=== PATIENT | female | born 1990 | race Caucasian/White ===

== ENCOUNTER 2021-04-16 09:58 | Emergency (ER) | payer MEDICAID, SELFPAY ==
--- NOTE | ~2021-04-16 | CT_ITS ---
EXAMINATION: CT ABDOMEN AND PELVIS WITHOUT CONTRAST CLINICAL INFORMATION: Right lower quadrant pain. COMPARISON: Report ultrasound abdomen 04/08/2015, report CT abdomen and pelvis with contrast 08/19/2012 TECHNIQUE: Multidetector volumetric imaging was performed from the superior aspect of the liver through the pubic symphysis. No oral or intravenous contrast. Sagittal and coronal reformatted images were obtained on the technologist's workstation. This CT examination was performed using dose optimization techniques as appropriate, variously including the following: *Automated exposure control *Adjustment of mA and/or kV according to patient size (this includes techniques or standardized protocols for targeted exams where dose is matched to indication/reason for exam; i.e. extremities or head) *Use of iterative reconstruction technique DLP: 348 mGy-cm FINDINGS: LUNG BASES: The visualized lung bases are unremarkable. LIVER, GALLBLADDER, AND BILIARY TREE: The liver is normal in size, shape, and attenuation. No focal hepatic lesion or biliary ductal dilatation is present. The gallbladder is unremarkable with no evidence of radiopaque gallstones, gallbladder wall thickening, or obvious pericholecystic inflammatory changes. PANCREAS: Unremarkable. SPLEEN: Unremarkable. ADRENAL GLANDS: Unremarkable. KIDNEYS AND URETERS: There is mild fullness right collecting system and right ureter. Suspect distal right ureteral calculus just proximal to the ureterovesical junction measuring 3.3 mm. There is no perinephric stranding. Left urinary tract unremarkable. BLADDER: Unremarkable. GASTROINTESTINAL TRACT: There is a large appendicolith in the appendix measuring 6 x 8 mm with 2 smaller adjacent satellite appendicoliths under 4 mm, not previously described. There is normal gas in the appendiceal lumen. The appendix adjacent to the appendicolith measure 5 x 7 mm in caliber. No periappendiceal inflammatory changes. There is no bowel obstruction. Moderate stool is present throughout the colon. There is no inflammatory changes in the bowel. No ascites or fluid collection. No pneumatosis or free air. ABDOMINAL WALL: No significant hernia is appreciated. LYMPH NODES: No lymphadenopathy. VASCULAR: Unremarkable. PELVIC VISCERA: Dominant follicle left ovary 2 cm. No pelvic ascites. OSSEOUS STRUCTURES: Unremarkable. CT/CT abdomen pelvis wo con IMPRESSION: 1. Fullness right renal collecting system and right ureter, suspect related to a 3 mm distal ureteral calculus. No perinephric stranding. Left urinary tract unremarkable. 2. Prominent appendiceal appendicolith, largest 6 x 8 mm. No periappendiceal inflammatory changes. 3. Moderate stool throughout colon. No ascites or fluid collection.
[2021-04-16 10:04] VITALS: BP 124/62; PULSE 84; RESP 24; TEMP 36.6; O2SAT 98; BMI 22.1
--- NOTE | 2021-04-16 14:21 | ED.ABDPAIN ---
HPI - Abdominal Pain General Chief Complaint: Abdominal Pain Stated Complaint: rt side abd pain Time Seen by Provider: 04/16/21 14:20 History of Present Illness HPI narrative: PATIENT IS 30-YEAR-OLD FEMALE PRESENTED WITH HAVING SUDDEN onset of abdominal pain the pain is on right side. Is extremely sharp. Associated with mild nausea. No vomiting. Patient is from home. No history kidney stone. No history of tender side is no history of abdominal surgery in the past. Patient did not miss her menstruation. No coughing no congestion or upper respiratory symptoms. Patient is not immunized. There is no diarrhea. No vomiting. No vaginal discharge. Related Data Previous Rx's Medication Instructions Recorded ibuprofen 400 mg tablet 400 mg PO Q6H PRN #20 tab 04/16/21 ondansetron HCl 4 mg tablet 4 mg PO Q8H PRN #10 tab 04/16/21 (Zofran) oxycodone 5 mg tablet 5 mg PO Q8H PRN #7 tab 04/16/21 tamsulosin 0.4 mg capsule (Flomax) 0.4 mg PO DAILY #7 cap 04/16/21 Allergies Allergy/AdvReac Type Severity Reaction Status Date / Time No Known Allergies Allergy Verified 04/16/21 10:02 Review of Systems Review of Systems Positive right-sided abdominal pain no cough no congestion or upper respiratory symptoms all system reviewed otherwise negative Physical Exam Vital Signs: Vital Signs: Last Vital Signs Temp 97.8 F 04/16/21 10:04 Pulse 84 04/16/21 10:04 Resp 24 H 04/16/21 10:04 BP 124/62 04/16/21 10:04 Pulse Ox 98 04/16/21 10:04 Body Mass Index 22.1 Appearance: Alert. Oriented X3. No acute distress. Eyes: Pupils equal, round and reactive to light. ENT: Pharynx normal. Neck: Normal inspection. Neck supple. No lymph nodes noted. No crepitus CVS: Normal heart rate and rhythm. Pulses normal. Normal S1 and S2 Respiratory: No respiratory distress. Breath sounds normal. No Wheezing. No rales Abdomen: Soft and nontender. No rigidity. No distention. good BS x4 Skin: Skin warm and dry. Normal skin color. Normal skin turgor. Extremities: No lower extremity edema. Neurovascular intact to all extremities. No Lacerations. No Rash Neuro: Oriented X 3. No motor deficit. No sensory deficit. Moving all extermities. No slurred speech MDM - Abdominal Pain MDM Narrative Medical decision making narrative: CT scan of the abdomen showed a 3 mm distal ureteral stone. Patient well-appearing. Creatinine is normal. Urine not infected. Not . Pain is controlled. Will discharge patient home follow up on an outpatient basis with Urology. Currently in stable condition. Medical Records Attestation: I reviewed the patient's medical records. Lab Data Attestation: I reviewed the patient's lab results. Result diagrams: 04/16/21 14:34 04/16/21 14:34 Labs: Lab Results 04/16/21 04/16/21 04/16/21 Range/Units 14:34 14:34 14:34 WBC 9.6 (4.8-10.8) X10*3/uL RBC 4.00 L (4.20-5.50) X10*6/uL Hgb 11.1 L (12.0-16.0) g/dl Hct 35.2 L (37.0-47.0) % MCV 88.0 (80.0-98.0) fL MCH 27.8 (27.0-33.0) pg MCHC 31.5 (31.0-35.0) g/dl RDW 13.5 (11.0-16.0) % Plt Count 335 (160-400) X10*3/uL MPV 9.7 (9.4-12.3) fL Immature Gran % (Auto) 0.3 (0.0-0.4) % Neut % (Auto) 86.4 H (45-73) % Lymph % (Auto) 10.0 L (20-40) % [place] % (Auto) 3.0 (2-11) % Eos % (Auto) 0.1 (0-4) % Baso % (Auto) 0.2 (0-2) % Lymph # (Auto) 1.0 L (1.2-4.9) X10*3/uL [place] # (Auto) 0.3 (0.1-1.2) X10*3/uL Eos # (Auto) 0.0 (0.0-0.4) X10*3/uL Baso # (Auto) 0.0 (0.0-0.2) X10*3/uL Abs Immat Gran (auto) 0.03 (0.00-0.03) X10*3/uL Absolute Neuts (auto) 8.3 (2.0-8.3) x10*3/uL Absolute Nucleated RBC 0.000 (0.0-0.012) X10*3/uL Nucleated RBC % (auto) 0.0 (0.0-0.2) /100WBC Sodium 138 (135-145) mmol/L Potassium 4.3 (3.3-5.1) mmol/L Chloride 107 (96-108) mmol/L Carbon Dioxide 22 (22-29) mmol/L Anion Gap 13 (12-20) BUN 11 (9-16) mg/dL Creatinine 0.84 (0.5-1.4) mg/dL Estim Creat Clear Calc 75.2 Estimated GFR > 60 Random Glucose 89 (60-115) mg/dL Calcium 9.7 (8.4-10.2) mg/dL Total Bilirubin 0.4 (0.0-1.0) mg/dL AST 20 (5-31) U/L ALT 15 (0-31) U/L Alkaline Phosphatase 59 (39-117) U/L Total Protein 7.8 (6.5-8.0) g/dL Albumin 4.6 (3.5-5.0) g/dL Urine Color Urine Appearance Urine pH (5.0-8.0) Ur Specific [place] (1.005-1.025) Urine Protein (NEG-TRACE) MG/DL Urine Glucose (UA) (NEG) MG/DL Urine Ketones (NEG) MG/DL Urine Blood (NEG) Urine Nitrite (NEG) Ur Leukocyte Esterase (NEG) Urine RBC (0) /HPF Urine WBC (0-4) /HPF Ur Squamous Epith Cells /LPF Amorphous Sediment /LPF Urine Bacteria /LPF Urine Test NEGATIVE (NEGATIVE) 04/16/21 Range/Units 14:34 WBC (4.8-10.8) X10*3/uL RBC (4.20-5.50) X10*6/uL Hgb (12.0-16.0) g/dl Hct (37.0-47.0) % MCV (80.0-98.0) fL MCH (27.0-33.0) pg MCHC (31.0-35.0) g/dl RDW (11.0-16.0) % Plt Count (160-400) X10*3/uL MPV (9.4-12.3) fL Immature Gran % (Auto) (0.0-0.4) % Neut % (Auto) (45-73) % Lymph % (Auto) (20-40) % [place] % (Auto) (2-11) % Eos % (Auto) (0-4) % Baso % (Auto) (0-2) % Lymph # (Auto) (1.2-4.9) X10*3/uL [place] # (Auto) (0.1-1.2) X10*3/uL Eos # (Auto) (0.0-0.4) X10*3/uL Baso # (Auto) (0.0-0.2) X10*3/uL Abs Immat Gran (auto) (0.00-0.03) X10*3/uL Absolute Neuts (auto) (2.0-8.3) x10*3/uL Absolute Nucleated RBC (0.0-0.012) X10*3/uL Nucleated RBC % (auto) (0.0-0.2) /100WBC Sodium (135-145) mmol/L Potassium (3.3-5.1) mmol/L Chloride (96-108) mmol/L Carbon Dioxide (22-29) mmol/L Anion Gap (12-20) BUN (9-16) mg/dL Creatinine (0.5-1.4) mg/dL Estim Creat Clear Calc Estimated GFR Random Glucose (60-115) mg/dL Calcium (8.4-10.2) mg/dL Total Bilirubin (0.0-1.0) mg/dL AST (5-31) U/L ALT (0-31) U/L Alkaline Phosphatase (39-117) U/L Total Protein (6.5-8.0) g/dL Albumin (3.5-5.0) g/dL Urine Color YELLOW Urine Appearance CLOUDY Urine pH 8.0 (5.0-8.0) Ur Specific [place] 1.020 (1.005-1.025) Urine Protein TRACE (NEG-TRACE) MG/DL Urine Glucose (UA) NEG (NEG) MG/DL Urine Ketones >=80 (NEG) MG/DL Urine Blood 1+ H (NEG) Urine Nitrite NEG (NEG) Ur Leukocyte Esterase NEG (NEG) Urine RBC 1-4 (0) /HPF Urine WBC 0 (0-4) /HPF Ur Squamous Epith Cells 3+ /LPF Amorphous Sediment 1+ /LPF Urine Bacteria 2+ /LPF Urine Test (NEGATIVE) Discharge Plan Discharge Clinical Impression: Renal colic Patient Disposition: Home, Self-Care Instructions: Renal Colic (ED) Prescriptions: New ondansetron HCl [Zofran] 4 mg tablet 4 mg PO Q8H PRN (Reason: nausea and vomiting) Qty: 10 RF: 0 tamsulosin [Flomax] 0.4 mg capsule 0.4 mg PO DAILY Qty: 7 RF: 0 ibuprofen 400 mg tablet 400 mg PO Q6H PRN (Reason: pain) Qty: 20 RF: 0 oxycodone 5 mg tablet 5 mg PO Q8H PRN (Reason: pain) Qty: 7 RF: 0 Referrals: Joseluis Wong MD [Physician] - 2 days [facility] Past Medical History Attestation statement: The following information was validated with the patient. Medical History Patient denies medical problems Social History Social History Patient Tobacco Use Status: Never used Tobacco Use of substances other than those prescribed or required for medical reasons: No Advance Directives: No Advance Directives Information Provided: Yes Patient : No
[2021-04-16] MEDS: 0.9 % Sodium Chloride 1,000 ML 999 ML IV (14:36)
[2021-04-16] MEDS: Ketorolac Tromethamine 15 MG/ML VIAL 30 MG IVPUSH (14:39)
[2021-04-16 14:42] LABS: MANUAL DIFF FLAG NO
[2021-04-16 14:44] LABS: Basophils Percent Auto 0.2 % (0-2); Eosinophils Percent Auto 0.1 % (0-4); Hematocrit 35.2 % (37.0-47.0); Hemoglobin 11.1 g/dl (12.0-16.0); Imm Gran Abs Auto 0.03 X10*3/uL (0.00-0.03); Imm Gran Pct Auto 0.3 % (0.0-0.4); Mean Corpuscular HGB Conc 31.5 g/dl (31.0-35.0); Mean Corpuscular Hemoglobin 27.8 pg (27.0-33.0); Mean Platelet Volume 9.7 fL (9.4-12.3); Monocytes Absolute Auto 0.3 X10*3/uL (0.1-1.2); Neutrophils Absolute Auto 8.3 x10*3/uL (2.0-8.3); Neutrophils Percent Auto 86.4 % (45-73); Platelet Count 335 X10*3/uL (160-400); Red Cell Distribution Width 13.5 % (11.0-16.0); White Blood Count 9.6 X10*3/uL (4.8-10.8)
[2021-04-16 14:45] LABS: Appearance Urine CLOUDY; Color Urine YELLOW; Glucose Urine UA NEG (NEG); Leukocyte Esterase Urine NEG (NEG); Nitrite Urine NEG (NEG); UACC Culture Trigger NO; Urine Blood 1+ (NEG); Urine Ketones >=80 MG/DL (NEG); Urine Protein TRACE MG/DL (NEG-TRACE)
[2021-04-16 14:47] LABS: UPreg QC Valid YES; Urine Pregnancy NEGATIVE (NEGATIVE)
[2021-04-16 15:00] LABS: Squamous Epithelial Cell Urine 3+ /LPF
[2021-04-16 15:01] LABS: Amorphous Sediment Urine 1+ /LPF; WBC Urine 0 /HPF (0-4)
[2021-04-16 15:02] LABS: Alanine Aminotransferase 15 U/L (0-31); Albumin Level 4.6 g/dL (3.5-5.0); Alkaline Phosphatase 59 U/L (39-117); Anion Gap 13 (12-20); Aspartate Amino Transferase 20 U/L (5-31); Bacteria Urine 2+ /LPF; Bilirubin Total 0.4 mg/dL (0.0-1.0); Blood Urea Nitrogen 11 mg/dL (9-16); Calcium 9.7 mg/dL (8.4-10.2); Carbon Dioxide 22 mmol/L (22-29); Chloride 107 mmol/L (96-108); Creatinine Clr Calc Pharmacy 75.2; Estimated Glomerular Filt Rate > 60; Glucose Random 89 mg/dL (60-115); Potassium 4.3 mmol/L (3.3-5.1); Sodium 138 mmol/L (135-145); Total Protein 7.8 g/dL (6.5-8.0)
== END 2021-04-16 17:23 | disposition home or self-care (01) ==
PROVIDERS: Emergency Provider Emergency Medicine Emergency Medical Services
DX: N20.0 Calculus of kidney (principal); R10.9 Unspecified abdominal pain
CPT/HCPCS: 36415; 74176; 80053; 81001; 81025; 85025; 96361; 96374; 99284; J1885

== ENCOUNTER 2025-03-11 15:01 | Outpatient (REF) | payer OTHER, SELFPAY ==
[2025-03-11 18:01] LABS: MANUAL DIFF FLAG NO
[2025-03-11 18:19] LABS: Hematocrit 33.4 % (37.0-47.0); Hemoglobin 10.4 g/dl (12.0-16.0); Imm Gran Abs Auto 0.01 X10*3/uL (0.00-0.03); Imm Gran Pct Auto 0.2 % (0.0-0.4); Lymphocytes Absolute Auto 2.0 X10*3/uL (1.2-4.9); Mean Corpuscular HGB Conc 31.1 g/dl (31.0-35.0); Mean Corpuscular Hemoglobin 26.3 pg (27.0-33.0); Mean Corpuscular Volume 84.6 fL (80.0-98.0); NRBC Abs Auto 0.020 X10*3/uL (0.0-0.012); NRBC Pct Auto 0.4 /100WBC (0.0-0.2); Platelet Count 305 X10*3/uL (160-400); Red Blood Count 3.95 X10*6/uL (4.20-5.50); White Blood Count 4.7 X10*3/uL (4.8-10.8)
[2025-03-11 18:49] LABS: Alanine Aminotransferase 21 U/L (0-31); Albumin Level 4.4 g/dL (3.5-5.0); Alkaline Phosphatase 123 U/L (39-117); Anion Gap 12 (12-20); Aspartate Amino Transferase 29 U/L (5-31); Blood Urea Nitrogen 8 mg/dL (9-16); Calcium 9.6 mg/dL (8.4-10.2); Carbon Dioxide 26 mmol/L (22-29); Chloride 108 mmol/L (96-108); Cholesterol 164 mg/dL (<200); Estimated Glomerular Filt Rate > 60; HDL Cholesterol 55 mg/dL (>40); Potassium 4.5 mmol/L (3.3-5.1); Sodium 141 mmol/L (135-145); Total Protein 7.5 g/dL (6.5-8.0); Triglycerides 96 mg/dL (<150)
[2025-03-11 19:18] LABS: Folate 9.3 ng/mL (> or = 4.0); Vitamin B12 504 pg/mL (200-900)
[2025-03-11 20:47] LABS: Free T4 (Free Thyroxine) 1.62 ng/dL (0.71-1.85)
[2025-03-12 03:13] LABS: Syphilis Screen Nonreactive (Nonreactive)
[2025-03-12 03:28] LABS: HBS Num1 1.49 mIU/mL (0-7.99); HBsAGNum1 0.44 S/CO (0.00-0.99); HIV Num 1 0.07 S/CO (0.00-0.99); Hepatitis B Surface Antigen Negative (Negative); ~HepC Num1 0.16 S/CO (0.00-0.79); ~Hepatitis B Surface Antibody NONREACTIVE (Nonreactive); ~Hepatitis C Antibody Nonreactive (Nonreactive)
[2025-03-15 23:13] LABS: Chlamydia Trachomatis IgA <1:16 titer (<1:16)
[2025-03-16 05:59] LABS: VITAMIN D (1,25 OH) D3 73 pg/mL; Vit D (1,25-Dihydroxy) Total 73 pg/mL (18-72); Vitamin D (1,25 OH) D2 <8 pg/mL
== END 2025-03-11 15:02 | disposition home or self-care (01) ==
LOC: HO.HKASLDS 15:01
PROVIDERS: PCP Student in an Organized Health Care Education/Training Program; Visit Provider Student in an Organized Health Care Education/Training Program
DX: Z13.9 Encounter for screening, unspecified (principal); E05.90 Thyrotoxicosis, unspecified without thyrotoxic crisis or storm; H04.123 Dry eye syndrome of bilateral lacrimal glands; D64.9 Anemia, unspecified
CPT/HCPCS: 36415; 80053; 80061; 82607; 82652; 82746; 83036; 84439; 84443; 85025; 86631; 86632; 86706; 86780; 86803; 87340; 87389

== ENCOUNTER 2025-03-11 15:01 | Outpatient (AMB) | payer OTHER, SELFPAY ==
--- NOTE | 2025-03-11 15:08 | MHC.PC.OV ---
Vital Signs 03/11/25 15:25 Height 5 ft 1.89 in Weight 115 lb 2 oz BMI 21.1 BP 116/58 L Blood Pressure Location Lt brachial Position Sitting Pulse 82 Pulse Source Pulse Oximeter Temp Source Oral Pulse Oximetry (%) 99 Oxygen Delivery Method Room Air Intake Visit Reasons: NEW PATIENT-establish care Intake Note: Dc [facility] 02/13/2025 fdx w Graves dx. Needs endocrinology referral Accompanied by: Self / Same As Patient Allergies ciprofloxacin Allergy (Intermediate, Verified 03/11/25 15:31) Muscle Pain Tobacco use date assessed: 03/11/25 Dental Screening Dental Screen Date: 03/11/25 Did you have a dental visit in the last 12 months?: No HPI HPI Comments History of Present Illness Details Consent Patient was informed and verbally consented to the use of an ambient scribe for clinic note documentation during this visit. History of Present Illness The patient is a 34-year-old female presenting with management of Graves' disease and associated symptoms. Graves' disease: - The patient was diagnosed with Graves' disease after being hospitalized at [facility] on February 13 due to severe symptoms including tremors, shortness of breath, and sweating. - Symptoms began approximately a year ago, worsening significantly since October, with a resting heart rate of 135-140 bpm. - The patient was prescribed methimazole and propranolol, initially at high doses, which were adjusted due to side effects and concerns about weight gain. - The patient reports improvement in symptoms after two and a half weeks of medication, although she is taking reduced doses due to fear of hypothyroidism. - Family history includes a sister with Graves' disease who opted not to take medication. Double ear infection: - The patient experienced a double ear infection diagnosed during a visit to the emergency room, which was accompanied by severe pain and hearing difficulties. Sinus infection: - Alongside the ear infection, the patient was diagnosed with a sinus infection, contributing to her overall discomfort and prompting the ER visit. Anemia: - The patient was diagnosed with anemia she was not sure when Dry eyes: - The patient reports experiencing dry eyes, feeling as though something is in them, which has improved slightly with medication but persists intermittently. Review of Systems - General: Reports fatigue and weight gain. - Cardiovascular: Reports palpitations and tachycardia with a resting heart rate of 135-140 bpm. - Respiratory: Reports dyspnea on exertion. - Neurological: Reports tremors and sweating. - Ophthalmologic: Reports dry eyes and sensation of foreign body in eyes. 10-point ROS reviewed and negative except as noted in HPI Past Medical History - Graves' disease diagnosed recently. - Anemia diagnosed recently. Health Maintenance - Cervical cancer screening ordered. - Referral to endocrinology for further management of Graves' disease. - Referral to ophthalmology for dry eyes management. Physical Exam General: Well-appearing, in no acute distress. Vital signs: Heart rate 82 bpm, Blood pressure 116/58 mmHg. HEENT: Normocephalic, atraumatic. PERRLA, EOMI. Conjunctiva clear, sclera anicteric. Oropharynx clear, mucous membranes moist. TMs intact bilaterally. Reports dry eyes, feels like something is in them. Neck: Supple, no lymphadenopathy, no thyromegaly, no JVD or carotid bruits. Cardiovascular: RRR, normal S1/S2, no murmurs, rubs, or gallops. Peripheral pulses 2+ and symmetric. No edema. Respiratory: Lungs clear to auscultation bilaterally, no wheezes, rales, or rhonchi. Normal effort. Abdomen: Soft, non-tender, non-distended. Normoactive bowel sounds. No hepatosplenomegaly, no masses. MSK: Full range of motion, no joint swelling or deformity. Normal gait. Skin: Warm, dry, intact. No rashes, lesions, or pallor. Neuro: Alert and oriented x3. Cranial nerves II-XII intact. Strength 5/5 throughout. Sensation intact. Reflexes 2+ symmetric. Normal coordination and gait. Psych: Appropriate mood and affect. Normal judgment and insight. Plan 1. Graves' Disease - Continue current doses of methimazole and propranolol, with a referral to endocrinology for further management. - Monitor symptoms and adjust medication as needed based on lab results. 2. Anemia - Further evaluation and management to be determined based on lab results. 3. Dry Eyes - Referral to ophthalmology and recommendation to use [id number] artificial tears. Discussion Notes I discussed with the patient the management of her Graves' disease, emphasizing the importance of medication adherence to prevent complications such as thyroid storm. endocrinology referral was providedWe reviewed the potential side effects of her current medications and the need for regular monitoring. I also addressed her concerns about dry eyes and provided a referral to ophthalmology. Additionally, we discussed the importance of cervical cancer screening and arranged for appropriate referrals. Patient Instructions - Continue taking methimazole and propranolol as prescribed. - Use [id number] artificial tears for dry eyes. - Attend scheduled appointments with endocrinology and ophthalmology. - Follow up for cervical cancer screening as advised. Medical Decision Making The patient's primary diagnosis of Graves' disease requires careful management to prevent complications such as thyroid storm. The decision to continue her current medication regimen was based on her reported improvement and the need to avoid hypothyroidism. Referrals to endocrinology and ophthalmology were made to ensure comprehensive care. The plan includes monitoring her symptoms and adjusting treatment as necessary based on lab results. Total time spent caring for the patient today was 30 minutes. This includes time spent before the visit reviewing the chart, time spent documenting, and time spent reviewing laboratory results, diagnostic imaging, medications, performing a medically necessary evaluation, counseling on diagnoses, care coordination, ordering appropriate tests, ordering appropriate medications, review of tests performed by other providers, reporting test results with the patient. [facility] Medical History (Updated 03/11/25 @ 15:44 by Randy Hollins MD) Screening for malignant neoplasm of cervix Dry eyes Hyperthyroidism Patient denies medical problems Family History (Updated 03/11/25 @ 15:34 by Andie Rodriguez [facility]) Mother Colitis Diabetes 1.5, managed as type 2 Father No problems noted. Social History (Updated 03/11/25 @ 15:34 by Andie Rodriguez [facility]) Housing: Apartment Alcohol intake: never Patient Tobacco Use Status: Never used Tobacco service: No Current occupational status: employed Cognitive needs: No Hearing needs: No Vision needs: No Questionnaire PHQ-9 Over the last 2 weeks, how often have you been bothered by any of the following problems? 1. Little interest or pleasure in doing things: several days 2. Feeling down, depressed, or hopeless: not at all 3. Trouble falling or staying asleep, or sleeping too much: several days 4. Feeling tired or having little energy: several days 5. Poor appetite or overeating: several days 6. Feeling bad about yourself - or that you are a failure or have let yourself or your family down: not at all 7. Trouble concentrating on things, such as reading the newspaper or watching television: several days 8. Moving or speaking so slowly that other people could have noticed. Or the opposite - being so fidgety or restless that you have been moving around a lot more than usual: not at all 9. Thoughts that you would be better off or of hurting yourself in some way: not at all Total score: 5 Source: Developed by Drs. Victor Hugo Richter, Shereen Willoughby, Jorgito Talley and colleagues, with an educational miryam from [employer]. Thrive Questionnaire Date Thrive assessed: 03/11/25 I am a: Patient What is your living situation today?: I have a steady place to live Within the past 12 months, did the food you bought not last and you didn't have the money to get more?: Never true Within the past 12 months, did you worry whether your food would run out before you got money to buy more?: Never true Do you have trouble paying for medicines?: No Do you have trouble getting transportation to medical appointments?: No Do you have trouble paying your heating and electricity bill?: I choose not to answer this question Do you have trouble taking care of your child, family member or friend?: I choose not to answer this question Are you currently unemployed and looking for a job?: No Are you interested in more education?: Yes Please select the resources that you would like help with: Paying for medicine, Utilities and Education Currently or been in a relationship where the following occur: No concerns reported THRIVE Score: 0 AUDIT C Alcohol Use Questionnaire (AUDIT-C) 1. How often do you have a drink containing alcohol?: Never Total Score: 0 FRANCISCO-7 AMB Questionnaire FRANCISCO-7 Date FRANCISCO - 7 assessed: 03/11/25 Feeling nervous, anxious, or on edge: 1 = Several days Not being able to stop or control worryin = Several days Worrying too much about different things: 1 = Several days Trouble relaxin = Not at all Being so restless that it is hard to sit still: 0 = Not at all Becoming easily annoyed or irritable: 1 = Several days Feeling afraid as if something awful might happen: 0 = Not at all Total FRANCISCO-7 score (0-4 normal; 5-9 mild; 10-14 moderate; 15-21 severe): 4 Source: Developed by Drs. Victor Hugo Richter, Shereen Willoughby, Jorgito Talley and colleagues, with an educational miryam from [employer]. Physical exam (Primary Care) Vital Signs: Last Vital Signs Pulse 82 03/11/25 15:25 BP 116/58 L 03/11/25 15:25 Pulse Ox 99 03/11/25 15:25 Oxygen Delivery Method Room Air 03/11/25 15:25 BMI result Body Mass Index 21.1 Tobacco/Smoking Status: Tobacco use Status Tobacco use date assessed 03/11/25 03/11/25 15:10 Patient Tobacco Use Status Never used Tobacco 03/11/25 15:34 PHQ-9: PHQ-9 Score PHQ-9: Total score 5 03/11/25 15:10 Thrive Assessment: Date of Thrive Assessment Date Thrive assessed 03/11/25 03/11/25 15:10 Currently or been in a relationship where the following occur: No concerns reported Coding Level of Care Code New Pt Level 4 (98534) Diagnoses Hyperthyroidism E05.90 Dry eyes H04.123 Anemia D64.9 Assessment & Plan Assessment & Plan (1) Hyperthyroidism: Code(s): E05.90 - Thyrotoxicosis, unspecified without thyrotoxic crisis or storm Category: Medical (2) Dry eyes: Code(s): H04.123 - Dry eye syndrome of bilateral lacrimal glands Category: Medical (3) Anemia: Code(s): D64.9 - Anemia, unspecified Plan Orders: Orders HIV Ab/Ag Today Z13.9 - Encounter for screening, unspecified Lipid Panel Today Z13.9 - Encounter for screening, unspecified Chlamydia Species Ab Panel Today Z13.9 - Encounter for screening, unspecified US thyroid Today E05.90 - Thyrotoxicosis, unspecified without thyrotoxic crisis or storm Complete Blood Count Auto Diff Today Z13.9 - Encounter for screening, unspecified Comprehensive Met. Panel Today Z13.9 - Encounter for screening, unspecified Hemoglobin A1c Today Z13.9 - Encounter for screening, unspecified Hepatitis B Surface Antibody Today Z13.9 - Encounter for screening, unspecified Hepatitis B Surface Antigen Today Z13.9 - Encounter for screening, unspecified Hepatitis C Antibody Today Z13.9 - Encounter for screening, unspecified TSH reflex Free T4 Today Z13.9 - Encounter for screening, unspecified UA CC w/rflx Micro + Cult Today Z13.9 - Encounter for screening, unspecified Vitamin B12 and Folate Today Z13.9 - Encounter for screening, unspecified Vitamin D 1,25 dihydroxy Today Z13.9 - Encounter for screening, unspecified CT NG by PCR Urine Today Z13.9 - Encounter for screening, unspecified Syphilis Screen Today Z13.9 - Encounter for screening, unspecified Referrals Endocrinology Referral E05.90 - Thyrotoxicosis, unspecified without thyrotoxic crisis or storm, Z13.9 - Encounter for screening, unspecified Ophthalmology Referral H04.123 - Dry eye syndrome of bilateral lacrimal glands, Z13.9 - Encounter for screening, unspecified BOARD LAYER Referral Z12.4 - Encounter for screening for malignant neoplasm of cervix, Z13.9 - Encounter for screening, unspecified Nurse Navigator Referral E05.90 - Thyrotoxicosis, unspecified without thyrotoxic crisis or storm Medications: New methimazole 10 mg PO ONCE 30 tabs 0RF
[2025-03-11 15:25] VITALS: BP 116/58; PULSE 82; O2SAT 99; BMI 21.1
--- OUTSIDE RECORDS SUMMARY | 2025-03-11 17:55 | XMS_ITS | Clinical Summary ---
Author Organization [facility] Address [address] [place] [address] Phone Care Team Providers Care Lead Scientist Name Role Phone Pcp, Unknown Primary Care Provider Unavailabl e Allergies Active Allergy Reactions Criticality Noted Date Comments Ciprofloxacin 02/10/2025 Medications No known medications Encounters Date Type Department Care Team Description 02/10/2025 3:02 PM EDT - 02/11/2025 12:47 AM EDT Emergency [facility] [address] [place] [address] Albania Harrington MD Discharge Disposition: Short Term Hospital from Last 3 Months Social History Tobacco Use Types Packs/Day Years Used Date Smoking Tobacco: Never Smokeless Tobacco: Never Tobacco Cessation:Counseling Given: Not Answered Alcohol Use Standard Drinks/Week Comments Not Currently 0 (1 standard drink = 0.6 oz pur e alcohol) Education Answer Date Recorded Are you interested in more education? Not on aster e 02/10/2025 Are you concerned about learning? Not on file 02/10/2025 No 02/10/2025 No 02/10/2025 Food Answer Date Recorded Within the past 6 months we worried whether our food would run out before we got money to buy more. Never True 02/10/2025 Within the past 6 months the food we bought just didn't last and we didn't have enough money to get more. Never True Residential Stability Answer Date Recor ded What is your housing situation today? I have sissy sing 02/10/2025 How many times have you move d in the past 12 months? Zero (I did not move) 02/10/2025 Paying for Meds Answer Date Recorded Do you have trouble paying for medicines? No 02/10/2025 Paying Utility Bills Answer Date Record ed Do you have trouble paying your heating or elect ricity bill? No 02/10/2025 Transportation Answer Date Recorded Has the lack of transportati on kept you from medical appointments or from getting medications? No 02/10/2025 Digital Access Answer Date Recorded No 02/10/2025 Yes 02/10/2025 Do you have reliable internet access at home? Ye s 02/10/2025 Do you have a device (e.g., phone, tablet, computer) with a working camera? Yes 02/10/2025 Intimate Partner Violence Answer Date R ecorded Are you denied basic needs s uch as food, clothing, or medical care? No 02/10/2025 In the past 12 months have y ou been in a relationship with a person who hurts, threatens, or tries to control you? No 02/10/2025 Are you denied basic needs s uch as food, clothing, or medical care? No 02/10/2025 In the past 12 months have y ou been in a relationship with a person who hurts, threatens, or tries to control you? No 02/10/2025 Comments Unknown Sex and Gender Information Value Date Recorded Sex Assigned at Not on file Legal Sex Female 2:12 PM EDT Gender Identity Not on file Sexual Orientation Not on file Last Filed Vital Signs Vital Sign Reading Time Taken Comments Blood Pressure 122/68 02/10/2025 11:45 PM EDT Pulse 99 02/10/2025 11:45 PM EDT Temperature 36.5 C (97.7 F) 02/10/2025 10:37 PM EDT Respiratory Rate 20 02/10/2025 11:45 PM EDT Oxygen Saturation 100% 02/10/2025 11:45 PM EDT Inhaled Oxygen Concentration - - Weight 50.8 kg (112 lb) 02/10/2025 2:28 PM EDT Height 154.9 cm (5' 1 ) 02/10/2025 2:28 PM EDT Body Mass Index 21.16 02/10/2025 2:28 PM EDT Plan of Treatment Health Maintenance Due Date Last Done Comments Adult Td,Tdap Booster 1992 DEPRESSION SCREENING 2004 HEPATITIS C SCREENING 2010 HIV ONE-TIME SCREENING (18-6 5 YEARS) 2010 PAP SMEAR 2013 INFLUENZA VACCINE (#1) 2024 COVID-19 VACCINE ( - 2024-2 6 season) 2025 SMOKING STATUS SCREENING (On ce After 26 Yrs) Completed 02/10/2025 HEPATITIS A VACCINES Aged Out No long er eligible based on patient's age to complete this topic HIB VACCINES Aged Out No longer eligi ble based on patient's age to complete this topic MENINGOCOCCAL VACCINES (ACWY) Aged Out No longer eligible based on patient's age to complete this topic MENINGOCOCCAL VACCINES (B) Aged Out N o longer eligible based on patient's age to complete this topic PNEUMOCOCCAL VACCINES (0-49 years) Aged Out No longer eligible based on patient's age to complete this topic Medical Devices Not on file Procedures Procedure Name Priority Date/Time Associated Diagnosis Comments COVID-19 RT-PCR/INFLUENZA A & B RSV Routine 02/10/2025 4:41 PM EDT COVID PANDEMIC RESPIRATORY VIRAL ORDER (PRO) STAT 02/10/2025 4:41 PM EDT URINE HCG STAT 02/10/2025 4:41 PM EDT XR CHEST PA AND LATERAL 2 VIEWS Routine 02/10/2025 4:40 PM EDT URINALYSIS W/REFLEX URINE CULTURE STAT 02/10/2025 4:35 PM EDT FREE T4 STAT 02/10/2025 4:14 PM EDT TSH WITH REFLEX STAT 02/10/2025 4:14 PM EDT MAGNESIUM STAT 02/10/2025 4:14 PM EDT LFTS (HEPATIC PANEL) STAT 02/10/2025 4:14 PM EDT BASIC METABOLIC PANEL STAT 02/10/2025 4:14 PM EDT CBC AND DIFFERENTIAL STAT 02/10/2025 4:14 PM EDT ECG 12-LEAD STAT 02/10/2025 2:31 PM EDT from Last 3 Months Results * SARS-CoV-2, Influenza A/B, PCR (02/10/2025 4:41 PM EDT) Specimen Source/Descriptio n NASOPHARYNGEAL SWAB [facility] Influenza A PCR Not Detected Not Detected [facility] Influenza B PCR Not Detected Not Detected [facility] SARS-CoV 2 (COVID-19) PCR Not Detected Not Detected [facility] Comment: SARS-CoV-2 not detected Negative results do not preclude SARS-CoV-2 infection and should not be used as the sole basis for patient management decisions. Negative results must be combined with clinical observations, patient history, and epidemiological information. 02/10/2025 4:41 PM EDT 02/10/2025 5:13 PM EDT Albania Harrington MD BODY FLUIDS AND STOOLS OR DERABLES Final Result Performing Organization Address [facility]/ZIP Co de Phone Number [address] [address] * HCG, urine (02/10/2025 4:41 PM EDT) URINE TEST Negative Negative [facility] Urine (Urine) 02/10/2025 4:4 1 PM EDT 02/10/2025 5:29 PM EDT Albania Harrington MD URINE ORDERABLES Final Re sult Performing Organization Address [facility]/ZIP Co de Phone Number [address] [address] * XR CHEST PA AND LATERAL 2 VIEWS (02/10/2025 4:40 PM EDT) Anatomical Region Laterality Modality Chest Computed Radiogr aphy 02/10/2025 5:30 PM EDT Impressions 02/10/2025 5:30 PM EDT No pneumonia or acute cardiopulmonary process. Narrative 02/10/2025 5:30 PM EDT XR CHEST PA AND LATERAL 2 VIEWS Referring clinician's provided indication for this examination in [facility]: Cough; r/o pneumonia COMPARISON: None. FINDINGS: Devices/Tubes/Lines: None. Lungs: No focal consolidation or pulmonary edema. Pleura: No pleural effusion or pneumothorax. Heart/Mediastinum: Normal cardiac silhouette. Normal mediastinal contours. Bones/Soft Tissues: No acute osseous abnormality. Procedure Note Sergei Rowell MD - 02/10/2025 XR CHEST PA AND LATERAL 2 VIEWS Referring clinician's provided indication for this examination in [facility]:Cough; r/o pneumonia COMPARISON: None. FINDINGS: Devices/Tubes/Lines: None. Lungs: No focal consolidation or pulmonary edema. Pleura: No pleural effusion or pneumothorax. Heart/Mediastinum: Normal cardiac silhouette. Normal mediastinalcontours. Bones/Soft Tissues: No acute osseous abnormality. IMPRESSION: No pneumonia or acute cardiopulmonary process. Albania Harrington MD IMG XR CHEST Final Res ult * (ABNORMAL) Urinalysis w/reflex Urine Culture (02/10/2025 4:35 PM EDT) COLOR Yellow Yellow [facility] CLARITY Clear [facility] GLUCOSE Negative Negative [facility] BILI Negative Negative [facility] KETONES 1+(A) Negative [facility] SPECIFIC GRAVITY 1.015 1.005 - 1.030 [facility] BLOOD Negative Negative [facility] PH 8.5(H) 5.0 - 8.0 [facility] Protein-UA Negative Negative [facility] NITRITE Negative Negative [facility] Leukocyte esterase, ur Negative Negative [facility] Urine (Urine) 02/10/2025 4:3 5 PM EDT 02/10/2025 4:46 PM EDT Albania Harrington MD URINE ORDERABLES Final Re sult [address] [address] * (ABNORMAL) TSH with reflex (02/10/2025 4:14 PM EDT) TSH 0.01(L) 0.27 - 4.20 uIU/mL [facility] Blood 02/10/2025 4:14 PM EDT 02/10/2025 4:44 PM EDT us Albania Harrington MD LAB BLOOD ORDERABLES Krystal l Result Performing Organization Address [facility] Co de Phone Number [address] [address] * LFTs (hepatic panel) (02/10/2025 4:14 PM EDT) ALKALINE PHOSPHATASE 107 39 - 117 U/L [facility] TOTAL BILIRUBIN 0.4 0.0 - 1.2 mg/dL [facility] DIRECT BILIRUBIN 0.1 0.0 - 0.2 mg/dL [facility] Bilirubin (Indirect) NOT CALCULATED 0 - 1.5 mg/dL [facility] AST 17 0 - 37 U/L [facility] ALT 23 0 - 40 U/L [facility] TOTAL PROTEIN 7.3 6.5 - 8.0 g/dL [facility] ALBUMIN 3.9 3.9 - 4.8 g/dL [facility] GLOBULIN 3.4 1 - 4.8 g/dL [facility] A/G Ratio 1.15 1.00 - 4.80 RATIO [facility] Blood 02/10/2025 4:14 PM EDT 02/10/2025 4:44 PM EDT us Albania Harrington MD LAB BLOOD ORDERABLES Krystal l Result Performing Organization Address [facility] Co de Phone Number [address] [address] * (ABNORMAL) CBC and differential (02/10/2025 4:14 PM EDT) WBC 9.78 4.00 - 11.00 K/uL [facility] RBC 4.17 4.00 - 5.20 M/uL [facility] HGB 11.0(L) 12.0 - 16.0 g/dL [facility] HCT 33.8(L) 36.0 - 46.0 % [facility] PLT 307 150 - 450 K/uL [facility] MCV 81.1 80.0 - 100.0 fL [facility] MCH 26.4(L) 27.0 - 31.0 pg [facility] MCHC 32.5 32.0 - 36.0 g/dL [facility] RDW 12.1 11.5 - 14.5 % [facility] MPV 10.2 8.4 - 12.0 fL [facility] NRBC 0.00 0.00 /100 WBCs [facility] ABSOLUTE NRBC 0.00 0.00 K/uL [facility] DIFF METHOD Auto [facility] NEUTS 79.8(H) 48.0 - 76.0 % [facility] LYMPHS 13.3(L) 18.0 - 41.0 % [facility] MONOS 6.3 4.0 - 11.0 % [facility] EOS 0.1 0.0 - 5.0 % [facility] BASOS 0.1 0.0 - 1.5 % [facility] Granulocytes, immature (%) 0.4 0.0 - 0.9 % [facility] ABSOLUTE NEUTS 7.80(H) 1.92 - 7.60 K/uL [facility] ABSOLUTE LYMPHS 1.30 0.72 - 4.10 K/uL [facility] ABSOLUTE MONOS 0.62 0.16 - 1.10 K/uL [facility] ABSOLUTE EOS 0.01 0.00 - 0.50 K/uL [facility] ABSOLUTE BASOS 0.01 0.00 - 0.15 K/uL [facility] Granulocytes, immature 0.04 0.00 - 0.09 K/uL [facility] Blood 02/10/2025 4:14 PM EDT 02/10/2025 4:44 PM EDT us Albania Harrington MD LAB BLOOD ORDERABLES Krystal l Result [address] [address] * (ABNORMAL) Free T4 (02/10/2025 4:14 PM EDT) FREE T4 7.6(H) 0.9 - 1.7 ng/dL [facility] 02/10/2025 4:14 PM EDT 02/10/2025 4:44 PM EDT us Albania Harrington MD LAB BLOOD ORDERABLES Krystal l Result Performing Organization Address [facility]/ZIP Co de Phone Number [address] [address] * Magnesium (02/10/2025 4:14 PM EDT) Pathologist [facility] MAGNESIUM 1.7 1.6 - 2.6 mg/dL [facility] Blood 02/10/2025 4:14 PM EDT 02/10/2025 4:44 PM EDT us Albania Harrington MD LAB BLOOD ORDERABLES Krystal l Result Performing Organization Address City/[facility]/ZIP Co de Phone Number [address] [address] * (ABNORMAL) Basic metabolic panel (02/10/2025 4:14 PM EDT) SODIUM 134 133 - 146 mmol/L [facility] CHLORIDE 100 96 - 108 mmol/L [facility] POTASSIUM 3.8 3.3 - 5.1 mmol/L [facility] CO2 19(L) 21 - 35 mmol/L [facility] BUN 8 6 - 19 mg/dL [facility] CREATININE 0.30(L) 0.5 - 1.5 mg/dL [facility] GLUCOSE 98 70 - 99 mg/dL [facility] CALCIUM 9.1 8.4 - 10.3 mg/dL [facility] EGFR >120 >59 mL/min/1.7 3m2 [facility] Comment:Estimated glomerular filtration rate calculated using the CKD-EPI refit equation. ANION GAP 19 10 - 20 mmol/L [facility] Blood 02/10/2025 4:14 PM EDT 02/10/2025 4:44 PM EDT us Albania Harrington MD LAB BLOOD ORDERABLES Krystal l Result [facility] [address] [place] [address] * ECG 12-LEAD (02/10/2025 2:31 PM EDT) Ventricular Rate EKG/MIN 151 BPM [facility] Atrial Rate 151 BPM [facility] VT Interval 122 ms [facility] QRS Duration 70 ms [facility] QT Interval 254 ms [facility] QTC Interval 402 ms [facility] P [place] 59 degrees [facility] R Wave [place] 57 degrees [facility] T Wave [place] 27 degrees [facility] 02/10/2025 2:31 PM EDT 02/11/2025 10:55 AM EDT Narrative [facility] - 02/11/2025 10:55 AM EDT Critical Test Result: High HR Sinus tachycardia Nonspecific T wave abnormality Abnormal ECG No previous ECGs available Confirmed by Sriram Whatley ([id number]) on 02/11/2025 10:55:13 AM us Albania Harrington MD ECG ORDERABLES Final Res ult [facility] from Last 3 Months [facility] PCP [facility] Care Teams Lead Scientist Relationship Specialty Start Date End Date Pcp, Unknown PCP - General 02/10/25 Additional Source Comments The information contained in this document represents components of the legal health record. It is not the complete legal health record.[facility]
== END 2025-03-11 15:58 | disposition home or self-care (01) ==
LOC: HO.HMCFMS 15:02
PROVIDERS: PCP Student in an Organized Health Care Education/Training Program; Visit Provider Student in an Organized Health Care Education/Training Program
DX: E05.90 Thyrotoxicosis, unspecified without thyrotoxic crisis or storm (principal); H04.123 Dry eye syndrome of bilateral lacrimal glands; D64.9 Anemia, unspecified

== ENCOUNTER 2025-03-28 10:15 | Outpatient (REF) | payer OTHER, SELFPAY ==
[2025-03-28 13:25] LABS: Appearance Urine Clear; Glucose Urine UA Negative (Negative); PH 7.5 (5.0-9.0); Specific Gravity - Urine 1.020 (1.005-1.025)
[2025-03-28 16:10] LABS: CT PCR Urine NOT DETECTED (Not Detect.); NG PCR Urine NOT DETECTED (Not Detect.)
== END 2025-03-28 10:16 | disposition home or self-care (01) ==
LOC: HO.HKASLDS 10:15
PROVIDERS: PCP Student in an Organized Health Care Education/Training Program; Visit Provider Student in an Organized Health Care Education/Training Program
DX: Z13.9 Encounter for screening, unspecified (principal); E05.90 Thyrotoxicosis, unspecified without thyrotoxic crisis or storm; D50.9 Iron deficiency anemia, unspecified; R74.8 Abnormal levels of other serum enzymes; Z79.899 Other long term (current) drug therapy
CPT/HCPCS: 81003; 87491; 87591

== ENCOUNTER 2025-03-28 10:15 | Outpatient (AMB) | payer OTHER, SELFPAY ==
--- NOTE | 2025-03-28 10:18 | MHC.PC.OV ---
Vital Signs 03/28/25 10:19 Height 5 ft 1.89 in Weight 113 lb 4 oz BMI 20.8 BP 130/77 Blood Pressure Location Lt brachial Position Sitting Respiration 16 Pulse 100 Pulse Source Pulse Oximeter Temp 98.2 F Temp Source Oral Pulse Oximetry (%) 98 Intake Visit Reasons: 2 week follow up Intake Note: Dc [facility] 02/13/2025 fdx w Graves dx. Needs endocrinology referral Accompanied by: Self / Same As Patient Allergies ciprofloxacin Allergy (Intermediate, Verified 03/28/25 10:19) Muscle Pain Medication List - Last Reconciled 03/28/25 by Randy Hollins MD methimazole 10 mg PO DAILY propranolol mg PO Tobacco use date assessed: 03/28/25 Dental Screening Dental Screen Date: 03/28/25 Did you have a dental visit in the last 12 months?: No HPI HPI Comments History of Present Illness Details Consent Patient was informed and verbally consented to the use of an ambient scribe for clinic note documentation during this visit. History of Present Illness The patient is a 34-year-old female presenting for follow-up on Graves' disease and review of lab results. Graves' Disease: The patient has a history of Graves' disease and reports feeling generally well on her current medication. She experienced an episode of palpitations, jitteriness, and sweating last week, which she attributes to missing her medication for one day, with symptoms resolving upon resumption of the medication. 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 Anemia: The patient was first diagnosed with anemia during a previous hospitalization. She reports feeling very tired, to the point of struggling at work, a symptom which has become more prominent as her hyperthyroidism is brought under control. Her diet is described as regular. Medications: - Thyroid medication 10 units for Graves' disease Social History: - Diet: Patient reports her diet is regular and not horrible. Diagnostic Results: - CBC: Reveals anemia. - CMP: Sodium, potassium, chloride, and renal function are normal. - Glucose: Random glucose and Hemoglobin A1c are normal. - Calcium: Normal. - Liver Function Tests: Total bilirubin, AST, and ALT are normal. - Alkaline Phosphatase: Slightly elevated. - Lipids: Cholesterol panel is normal. - Vitamin D: Level is slightly high at 73 (cutoff 72). - Folate: Normal. - Thyroid function tests: Indicate subclinical hyperthyroidism. - Infectious Disease Panel: Negative for syphilis, chlamydia, hepatitis B, hepatitis C, and HIV. - Urinalysis: Not performed. Review of Systems - Constitutional: Reports significant fatigue. - Endocrine: Reports a recent, transient episode of jitteriness and sweating after missing medication. - Cardiovascular: Reports a recent, transient episode of palpitations/tachycardia. - GI: Denies abdominal pain after eating. 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 - Heme/Lymph: Denies pica. 10-point ROS reviewed and negative except as noted in HPI Past Medical History - Graves' disease - Anemia, diagnosed during a prior hospitalization - Recent ICU admission Health Maintenance - STI screening: Completed and negative for syphilis, chlamydia, hep B, hep C, and HIV. - Diet: Advised to consume iron-rich foods. Physical Exam General: Well-appearing, in no acute distress. Vital signs: Within normal limits. HEENT: Normocephalic, atraumatic. PERRLA, EOMI. Conjunctiva clear, sclera anicteric. Oropharynx clear, mucous membranes moist. TMs intact bilaterally. Neck: Supple, no lymphadenopathy, no thyromegaly, no JVD or carotid bruits. Cardiovascular: RRR, normal S1/S2, no murmurs, rubs, or gallops. Peripheral pulses 2+ and symmetric. No edema. Respiratory: Lungs clear to auscultation bilaterally, no wheezes, rales, or rhonchi. Normal effort. Abdomen: Soft, non-tender, non-distended. Normoactive bowel sounds. No hepatosplenomegaly, no masses. MSK: Full range of motion, no joint swelling or deformity. Normal gait. Skin: Warm, dry, intact. No rashes, lesions, or pallor. Neuro: Alert and oriented x3. Cranial nerves II-XII intact. Strength 5/5 throughout. Sensation intact. Reflexes 2+ symmetric. Normal coordination and gait. Psych: Appropriate mood and affect. Normal judgment and insight. Plan 1. Iron Deficiency Anemia - Prescribed iron supplement daily. - Prescribed Vitamin C to be taken with iron to aid absorption. - Counseled patient on potential side effects of iron, including constipation and dark stools, and advised to increase water and fiber intake. - Prescribed MiraLAX for as-needed use for constipation. - Advised patient to incorporate iron-rich foods into her diet. 2. Graves' Disease - Continue current thyroid medication at the 10-unit dose. - Repeat thyroid panel in 4-6 weeks to reassess function before considering any dose adjustments. 3. Elevated Alkaline Phosphatase - Monitor this finding, as it is likely related to hyperthyroidism and the patient is asymptomatic. - Plan to repeat labs in six months. 4. Follow-Up - Schedule a follow-up visit in four weeks to review progress and repeat labs. - Patient advised to return sooner if she experiences worsening symptoms, such as a racing heart. Discussion Notes I reviewed the patient's lab results with her in detail. I explained that her significant fatigue is due to anemia, which was likely masked by her previously uncontrolled hyperthyroidism. We discussed the plan to start iron and Vitamin C supplements, and I counseled her on potential side effects like constipation and the management thereof with increased fluids, fiber, and as-needed MiraLAX. I explained that while her labs show subclinical hyperthyroidism, we will not adjust her medication at this time because she is feeling well, and there can be a lag in lab normalization. I reassured her that other minor lab abnormalities, such as the slightly elevated alkaline phosphatase and vitamin D, are not concerning at present and will be monitored. We agreed on a follow-up visit in four weeks, with repeat labs to be done prior, and I advised her to return sooner if any concerning symptoms arise. Patient Instructions - Take one iron pill and one Vitamin C pill every day. - Be aware that the iron supplement can make your stool dark and may cause constipation. - If you get constipated, drink more water, eat more fiber, and you can take MiraLAX at night if needed. - Continue taking your thyroid medication at the current dose of 10 units daily. - Try to eat more foods that are rich in iron. - You will need to have blood tests again in 4 to 6 weeks. - Please schedule a follow-up appointment to see me in about 4 weeks. - If you experience symptoms like your heart racing, please come back to the clinic to be seen sooner. Medical Decision Making The patient is a 34-year-old female for follow-up of Graves' disease and review of recent lab work. Her primary symptom is significant fatigue, which is explained by new lab findings of anemia. It is my assessment that her previously hyperthyroid state masked the symptoms of anemia, which are now becoming apparent as her thyroid function normalizes on medication. Her thyroid labs currently indicate subclinical hyperthyroidism. However, given that she is clinically euthyroid and only experiences symptoms when she misses a dose, I will not adjust her medication at this time. This approach accounts for a potential lag between clinical improvement and lab normalization. The plan is to continue the current dosage and repeat the thyroid panel in 4-6 weeks to guide future management. The anemia is presumed to be iron-deficiency anemia, and she will be started on oral iron and vitamin C supplementation. The slightly elevated alkaline phosphatase is noted but not clinically concerning in the context of her hyperthyroidism and lack of biliary symptoms; it will be monitored. The patient will follow up in four weeks to reassess her clinical status and review repeat labs. Total time spent caring for the patient today was 30 minutes. This includes time spent before the visit reviewing the chart, time spent documenting, and time spent reviewing laboratory results, diagnostic imaging, medications, performing a medically necessary evaluation, counseling on diagnoses, care coordination, ordering appropriate tests, ordering appropriate medications, review of tests performed by other providers, reporting test results with the patient. [facility] Medical History (Updated 03/28/25 @ 10:48 by Randy Hollins MD) Elevated alkaline phosphatase level Iron deficiency anemia Screening for malignant neoplasm of cervix Dry eyes Hyperthyroidism Patient denies medical problems Family History (Updated 03/11/25 @ 15:34 by Andie Rodriguez [facility]) Mother Colitis Diabetes 1.5, managed as type 2 Father No problems noted. Social History (Updated 03/11/25 @ 15:34 by Andie Rodriguez [facility]) Housing: Apartment Alcohol intake: never Patient Tobacco Use Status: Never used Tobacco service: No Current occupational status: employed Cognitive needs: No Hearing needs: No Vision needs: No Questionnaire Thrive Questionnaire Date Thrive assessed: 03/11/25 I am a: Patient What is your living situation today?: I have a steady place to live Within the past 12 months, did the food you bought not last and you didn't have the money to get more?: Never true Within the past 12 months, did you worry whether your food would run out before you got money to buy more?: Never true Do you have trouble paying for medicines?: No Do you have trouble getting transportation to medical appointments?: No Do you have trouble paying your heating and electricity bill?: I choose not to answer this question Do you have trouble taking care of your child, family member or friend?: I choose not to answer this question Are you currently unemployed and looking for a job?: No Are you interested in more education?: Yes Currently or been in a relationship where the following occur: No concerns reported THRIVE Score: 0 FRANCISCO-7 AMB Questionnaire FRANCISCO-7 Date FRANCISCO - 7 assessed: 03/11/25 Source: Developed by Drs. Victor Hugo Richter, Shereen Willoughby, Jorgito Talley and colleagues, with an educational miryam from [employer]. Physical exam (Primary Care) Vital Signs: Last Vital Signs Temp 98.2 F 03/28/25 10:19 Pulse 100 03/28/25 10:19 Resp 16 03/28/25 10:19 BP 130/77 03/28/25 10:19 Pulse Ox 98 03/28/25 10:19 BMI result Body Mass Index 20.8 Tobacco/Smoking Status: Tobacco use Status Tobacco use date assessed 03/28/25 03/28/25 10:25 Patient Tobacco Use Status Never used Tobacco 03/28/25 10:25 Thrive Assessment: Date of Thrive Assessment Date Thrive assessed 03/11/25 03/28/25 10:25 Currently or been in a relationship where the following occur: No concerns reported Coding Level of Care Code Est Pt Level 3 (78808) Diagnoses Hyperthyroidism E05.90 Iron deficiency anemia D50.9 Elevated alkaline phosphatase level R74.8 Assessment & Plan Assessment & Plan (1) Hyperthyroidism: Code(s): E05.90 - Thyrotoxicosis, unspecified without thyrotoxic crisis or storm Category: Medical (2) Iron deficiency anemia: Code(s): D50.9 - Iron deficiency anemia, unspecified Category: Medical (3) Elevated alkaline phosphatase level: Code(s): R74.8 - Abnormal levels of other serum enzymes Category: Medical Plan
[2025-03-28 10:19] VITALS: BP 130/77; PULSE 100; RESP 16; TEMP 36.8; O2SAT 98; BMI 20.8
--- OUTSIDE RECORDS SUMMARY | 2025-03-28 11:36 | XMS_ITS | Clinical Summary ---
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 Name Role Phone Pcp, Unknown Primary Care Provider Unavailabl e Allergies Active Allergy Reactions Criticality Noted Date Comments Ciprofloxacin 02/10/2025 Medications No known medications Encounters Date Type Department Care Team Description 02/10/2025 3:02 PM EDT - 02/11/2025 12:47 AM EDT Emergency [facility] [address] [place] [address] Albania Harrington MD Discharge Disposition: Short Term [...] PM EDT) Specimen Source/Descriptio n NASOPHARYNGEAL SWAB [facility] Influenza A PCR Not Detected Not Detected [facility] Influenza B PCR Not Detected Not Detected [facility] SARS-CoV 2 (COVID-19) PCR Not Detected Not Detected [facility] Comment: SARS-CoV-2 not detected Negative results do not preclude SARS-CoV-2 infection and should not be used as the sole basis for patient management decisions. Negative results must be combined with clinical observations, patient history, and epidemiological information. 02/10/2025 4:41 PM EDT 02/10/2025 5:13 PM EDT Albania Harrington MD BODY FLUIDS AND STOOLS OR DERABLES Final Result Performing Organization Address [facility]/ZIP Co de Phone Number [address] [address] * HCG, urine (02/10/2025 4:41 PM EDT) URINE TEST Negative Negative [facility] Urine (Urine) 02/10/2025 4:4 1 PM EDT 02/10/2025 5:29 PM EDT Albania Harrington MD URINE ORDERABLES Final Re sult Performing Organization Address [facility]/ZIP Co de Phone Number [address] [address] * XR CHEST PA AND LATERAL 2 VIEWS (02/10/2025 4:40 PM EDT) Anatomical Region Laterality Modality Chest Computed Radiogr aphy 02/10/2025 5:30 PM EDT Impressions 02/10/2025 5:30 PM EDT No pneumonia or acute cardiopulmonary process. Narrative 02/10/2025 5:30 PM EDT XR CHEST PA AND LATERAL 2 VIEWS Referring clinician's provided indication for this examination in [facility]: Cough; r/o pneumonia COMPARISON: None. FINDINGS: Devices/Tubes/Lines: None. Lungs: No focal consolidation or pulmonary edema. Pleura: No pleural effusion or pneumothorax. Heart/Mediastinum: Normal cardiac silhouette. Normal mediastinal contours. Bones/Soft Tissues: No acute osseous abnormality. Procedure Note Sergei Rowell MD - 02/10/2025 XR CHEST PA AND LATERAL 2 VIEWS Referring clinician's provided indication for this examination in [facility]:Cough; r/o pneumonia COMPARISON: None. FINDINGS: Devices/Tubes/Lines: None. Lungs: No focal consolidation or pulmonary edema. Pleura: No pleural effusion or pneumothorax. Heart/Mediastinum: Normal cardiac silhouette. Normal mediastinalcontours. Bones/Soft Tissues: No acute osseous abnormality. IMPRESSION: No pneumonia or acute cardiopulmonary process. Albania Harrington MD IMG XR CHEST Final Res ult * (ABNORMAL) Urinalysis w/reflex Urine Culture (02/10/2025 4:35 PM EDT) COLOR Yellow Yellow [facility] CLARITY Clear [facility] GLUCOSE Negative Negative [facility] BILI Negative Negative [facility] KETONES 1+(A) Negative [facility] SPECIFIC GRAVITY 1.015 1.005 - 1.030 [facility] BLOOD Negative Negative [facility] PH 8.5(H) 5.0 - 8.0 [facility] Protein-UA Negative Negative [facility] NITRITE Negative Negative [facility] Leukocyte esterase, ur Negative Negative [facility] Urine (Urine) 02/10/2025 4:3 5 PM EDT 02/10/2025 4:46 PM EDT Albania Harrington MD URINE ORDERABLES Final Re sult [address] [address] * (ABNORMAL) TSH with reflex (02/10/2025 4:14 PM EDT) TSH 0.01(L) 0.27 - 4.20 uIU/mL [facility] Blood 02/10/2025 4:14 PM EDT 02/10/2025 4:44 PM EDT us Albania Harrington MD LAB BLOOD ORDERABLES Krystal l Result Performing Organization Address [place]/[facility] Co de Phone Number [address] [address] * LFTs (hepatic panel) (02/10/2025 4:14 PM EDT) ALKALINE PHOSPHATASE 107 39 - 117 U/L [facility] TOTAL BILIRUBIN 0.4 0.0 - 1.2 mg/dL [facility] DIRECT BILIRUBIN 0.1 0.0 - 0.2 mg/dL [facility] Bilirubin (Indirect) NOT CALCULATED 0 - 1.5 mg/dL [facility] AST 17 0 - 37 U/L [facility] ALT 23 0 - 40 U/L [facility] TOTAL PROTEIN 7.3 6.5 - 8.0 g/dL [facility] ALBUMIN 3.9 3.9 - 4.8 g/dL [facility] GLOBULIN 3.4 1 - 4.8 g/dL [facility] A/G Ratio 1.15 1.00 - 4.80 RATIO [facility] Blood 02/10/2025 4:14 PM EDT 02/10/2025 4:44 PM EDT us Albania Harrington MD LAB BLOOD ORDERABLES Krystal l Result Performing Organization Address [facility] Co de Phone Number [address] [address] * (ABNORMAL) CBC and differential (02/10/2025 4:14 PM EDT) WBC 9.78 4.00 - 11.00 K/uL [facility] RBC 4.17 4.00 - 5.20 M/uL [facility] HGB 11.0(L) 12.0 - 16.0 g/dL [facility] HCT 33.8(L) 36.0 - 46.0 % [facility] PLT 307 150 - 450 K/uL [facility] MCV 81.1 80.0 - 100.0 fL [facility] MCH 26.4(L) 27.0 - 31.0 pg [facility] MCHC 32.5 32.0 - 36.0 g/dL [facility] RDW 12.1 11.5 - 14.5 % [facility] MPV 10.2 8.4 - 12.0 fL [facility] NRBC 0.00 0.00 /100 WBCs [facility] ABSOLUTE NRBC 0.00 0.00 K/uL [facility] DIFF METHOD Auto [facility] NEUTS 79.8(H) 48.0 - 76.0 % [facility] LYMPHS 13.3(L) 18.0 - 41.0 % [facility] MONOS 6.3 4.0 - 11.0 % [facility] EOS 0.1 0.0 - 5.0 % [facility] BASOS 0.1 0.0 - 1.5 % [facility] Granulocytes, immature (%) 0.4 0.0 - 0.9 % [facility] ABSOLUTE NEUTS 7.80(H) 1.92 - 7.60 K/uL [facility] ABSOLUTE LYMPHS 1.30 0.72 - 4.10 K/uL [facility] ABSOLUTE MONOS 0.62 0.16 - 1.10 K/uL [facility] ABSOLUTE EOS 0.01 0.00 - 0.50 K/uL [facility] ABSOLUTE BASOS 0.01 0.00 - 0.15 K/uL [facility] Granulocytes, immature 0.04 0.00 - 0.09 K/uL [facility] Blood 02/10/2025 4:14 PM EDT 02/10/2025 4:44 PM EDT us Albania Harrington MD LAB BLOOD ORDERABLES Krystal l Result [address] [address] * (ABNORMAL) Free T4 (02/10/2025 4:14 PM EDT) FREE T4 7.6(H) 0.9 - 1.7 ng/dL [facility] 02/10/2025 4:14 PM EDT 02/10/2025 4:44 PM EDT us Albania Harrington MD LAB BLOOD ORDERABLES Krystal l Result Performing Organization Address [facility]/ZIP Co de Phone Number [address] [address] * Magnesium (02/10/2025 4:14 PM EDT) Pathologist [facility] MAGNESIUM 1.7 1.6 - 2.6 mg/dL [facility] Blood 02/10/2025 4:14 PM EDT 02/10/2025 4:44 PM EDT us Albania Harrington MD LAB BLOOD ORDERABLES Krystal l Result Performing Organization Address City/[facility]/ZIP Co de Phone Number [address] [address] * (ABNORMAL) Basic metabolic panel (02/10/2025 4:14 PM EDT) SODIUM 134 133 - 146 mmol/L [facility] CHLORIDE 100 96 - 108 mmol/L [facility] POTASSIUM 3.8 3.3 - 5.1 mmol/L [facility] CO2 19(L) 21 - 35 mmol/L [facility] BUN 8 6 - 19 mg/dL [facility] CREATININE 0.30(L) 0.5 - 1.5 mg/dL [facility] GLUCOSE 98 70 - 99 mg/dL [facility] CALCIUM 9.1 8.4 - 10.3 mg/dL [facility] EGFR >120 >59 mL/min/1.7 3m2 [facility] Comment:Estimated glomerular filtration rate calculated using the CKD-EPI refit equation. ANION GAP 19 10 - 20 mmol/L [facility] Blood 02/10/2025 4:14 PM EDT 02/10/2025 4:44 PM EDT us Albania Harrington MD LAB BLOOD ORDERABLES Krystal l Result [facility] [address] [place] [address] * ECG 12-LEAD (02/10/2025 2:31 PM EDT) Ventricular Rate EKG/MIN 151 BPM [facility] Atrial Rate 151 BPM [facility] OH Interval 122 ms [facility] QRS Duration 70 ms [facility] QT Interval 254 ms [facility] QTC Interval 402 ms [facility] P [place] 59 degrees [facility] R Wave [place] 57 degrees [facility] T Wave [place] 27 degrees [facility] 02/10/2025 2:31 PM EDT 02/11/2025 10:55 AM EDT Narrative [facility] - 02/11/2025 10:55 AM EDT Critical Test Result: High HR Sinus tachycardia Nonspecific T wave abnormality Abnormal ECG No previous ECGs available Confirmed by Sriram Whatley ([id number]) on 02/11/2025 10:55:13 AM us Albania Harrington MD ECG ORDERABLES Final Res ult [facility] from Last 3 Months [facility] PCP [facility] Care Teams Heavy Mobile Equipment Operator Relationship Specialty Start Date End Date Pcp, Unknown PCP - General 02/10/25 Additional Source Comments The information contained in this document represents components of the legal health record. It is not the complete legal health record.[facility]
== END 2025-03-28 10:49 | disposition home or self-care (01) ==
PROVIDERS: PCP Student in an Organized Health Care Education/Training Program; Visit Provider Student in an Organized Health Care Education/Training Program
DX: E05.90 Thyrotoxicosis, unspecified without thyrotoxic crisis or storm (principal); D50.9 Iron deficiency anemia, unspecified; R74.8 Abnormal levels of other serum enzymes

== ENCOUNTER 2025-04-23 15:53 | Outpatient (AMB) | payer OTHER, SELFPAY ==
--- NOTE | 2025-04-23 15:57 | MHC.PC.OV ---
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 Fatigue: The patient reports feeling extremely tired. The patient notes that a previous order for iron was not filled. Medication Management: The patient is almost out of propranolol. Medications: - Propranolol 80 mg once a day -methimazole Past Medical History Health Maintenance - Lab work was ordered to check thyroid function. COUNTS INCLUDE 234 BEDS AT THE [facility] Medical History Elevated alkaline phosphatase level Iron deficiency anemia Screening for malignant neoplasm of cervix Dry eyes Hyperthyroidism Patient denies medical problems Family History Mother Colitis Diabetes 1.5, managed as type 2 Father No problems noted. Social History (Updated 04/23/25 @ 16:01 by Giovanny Avitia CMA) Housing: Apartment Alcohol intake: never Patient Tobacco Use Status: Never used Tobacco e-Cigarette/Vaping Use: Never Used service: No Current occupational status: employed Cognitive needs: No Hearing needs: No Vision needs: No Questionnaire Thrive Questionnaire Date Thrive assessed: 03/11/25 I am a: Patient What is your living situation today?: I have a steady place to live Within the past 12 months, did the food you bought not last and you didn't have the money to get more?: Never true Within the past 12 months, did you worry whether your food would run out before you got money to buy more?: Never true Do you have trouble paying for medicines?: No Do you have trouble getting transportation to medical appointments?: No Do you have trouble paying your heating and electricity bill?: I choose not to answer this question Do you have trouble taking care of your child, family member or friend?: I choose not to answer this question Are you currently unemployed and looking for a job?: No Are you interested in more education?: Yes Currently or been in a relationship where the following occur: No concerns reported THRIVE Score: 0 FRANCISCO-7 AMB Questionnaire FRANCISCO-7 Date FRANCISCO - 7 assessed: 03/11/25 Source: Developed by Drs. Victor Hugo Richter, Shereen Willoughby, Jorgito Talley and colleagues, with an educational miryam from [employer]. Review of Systems Narrative Review of Systems - Constitutional: Reports extreme fatigue. 10-point ROS reviewed and negative except as noted in HPI Physical exam (Primary Care) Vital Signs: Last Vital Signs Temp 98.3 F 04/23/25 16:02 Pulse 95 04/23/25 16:02 Resp 18 04/23/25 16:02 BP 123/64 04/23/25 16:02 Pulse Ox 96 04/23/25 16:02 Oxygen Delivery Method Room Air 04/23/25 16:02 BMI result Body Mass Index 21.7 Tobacco/Smoking Status: Tobacco use Status Tobacco use date assessed 03/28/25 04/23/25 15:57 Patient Tobacco Use Status Never used Tobacco 04/23/25 16:01 e-Cigarette/Vaping Use Never Used 04/23/25 16:04 Thrive Assessment: Date of Thrive Assessment Date Thrive assessed 03/11/25 04/23/25 15:57 Currently or been in a relationship where the following occur: No concerns reported Narrative Physical Exam General: Well-appearing, in no acute distress, but reports feeling extremely tired. Vital signs: Within normal limits. HEENT: Normocephalic, atraumatic. PERRLA, EOMI. Conjunctiva clear, sclera anicteric. Oropharynx clear, mucous membranes moist. TMs intact bilaterally. Neck: Supple, no lymphadenopathy, no thyromegaly, no JVD or carotid bruits. Cardiovascular: RRR, normal S1/S2, no murmurs, rubs, or gallops. Peripheral pulses 2+ and symmetric. No edema. Respiratory: Lungs clear to auscultation bilaterally, no wheezes, rales, or rhonchi. Normal effort. Abdomen: Soft, non-tender, non-distended. Normoactive bowel sounds. No hepatosplenomegaly, no masses. MSK: Full range of motion, no joint swelling or deformity. Normal gait. Skin: Warm, dry, intact. No rashes, lesions, or pallor. Neuro: Alert and oriented x3. Cranial nerves II-XII intact. Strength 5/5 throughout. Sensation intact. Reflexes 2+ symmetric. Normal coordination and gait. Psych: Appropriate mood and affect. Normal judgment and insight. Coding Level of Care Code Est Pt Level 3 (75105) Diagnoses Iron deficiency anemia D50.9 Hyperthyroidism E05.90 Assessment & Plan Assessment & Plan (1) Iron deficiency anemia: Code(s): D50.9 - Iron deficiency anemia, unspecified Category: Medical (2) Hyperthyroidism: Code(s): E05.90 - Thyrotoxicosis, unspecified without thyrotoxic crisis or storm Category: Medical Plan Consent Patient was informed and verbally consented to the use of an ambient scribe for clinic note documentation during this visit. Plan 1. Fatigue - Orders for labs to check thyroid function and other parameters have been placed. - Prescribed vitamin C and ferrous sulfate for three months to treat presumed iron deficiency. - Follow-up in two weeks after the labs are completed. 2. Long-Term (Current) Use Of Propranolol - A 90-day supply of propranolol 80 mg once daily was prescribed and sent to [facility]. Discussion Notes I have ordered lab tests to evaluate the patient's thyroid function she was recently diagnosed as hyperthyroid comes in for repeat labs. I have also prescribed a three-month course of ferrous sulfate and vitamin C for presumed iron deficiency. I provided instructions to take the vitamin C before the iron and to take the iron one hour before or two hours after eating. I have refilled the patient's prescriptions for propranolol 80 mg, sending a 90-day supply for the propranolol. I have advised the patient to return for labs on Monday as the lab closes at 4 PM and will be closed for the holiday. A follow-up visit is recommended in two weeks after the lab results are available. Patient Instructions - Please go to the lab on Monday to have your blood drawn for the ordered tests. - New prescriptions for ferrous sulfate (iron) and ascorbic acid (vitamin C) have been sent to your pharmacy. - Take the vitamin C before you take the iron. - Take the iron supplement one hour before a meal or two hours after a meal. - Refills for your propranolol have been sent to your pharmacy. - Please schedule a follow-up appointment to see me two weeks after you get your labs done. Medical Decision Making The patient is a 34-year-old individual presenting for thyroid studies to confirm correct medication dosing and need for titration Given the history of a previously unfilled iron prescription and ongoing fatigue, empiric treatment with ferrous sulfate and vitamin C (for enhanced absorption) is initiated for presumed iron deficiency. Routine medication management was also addressed, with refills provided for propranolol to ensure continuity of care. The plan is for the patient to complete the lab work and follow up in two weeks to review the results and reassess the treatment plan for the fatigue. Total Time Statement 20 min Total time spent caring for the patient today includes pre-visit chart review, documentation, review of laboratory and diagnostic imaging results, medication reconciliation, medically necessary evaluation, counseling on diagnoses, care coordination, ordering appropriate tests and medications, review of tests performed by other providers, reporting test results to the patient, and communication with other healthcare providers. Orders: Orders Free T4 (Free Thyroxine) 04/23/25 E05.90 - Thyrotoxicosis, unspecified without thyrotoxic crisis or storm Triiodothyronine T3 Free 04/23/25 E05.90 - Thyrotoxicosis, unspecified without thyrotoxic crisis or storm Thyroid Peroxidase Antibodies 04/23/25 E05.90 - Thyrotoxicosis, unspecified without thyrotoxic crisis or storm Thyroid Stimulating Hormone 04/23/25 E05.90 - Thyrotoxicosis, unspecified without thyrotoxic crisis or storm Medications: New ascorbic acid (vitamin C) 500 mg PO DAILY 90 tabs 0RF ferrous sulfate 325 mg PO DAILY 90 tabs 0RF Changed From propranolol PO To propranolol 80 mg PO ONCE 90 tabs 0RF
[2025-04-23 16:02] VITALS: BP 123/64; PULSE 95; RESP 18; TEMP 36.8; O2SAT 96; BMI 21.7
--- OUTSIDE RECORDS SUMMARY | 2025-04-23 17:53 | XMS_ITS | Clinical Summary ---
Author Organization [facility] Address [address] [place] [address] Phone Care Team Providers Care Housekeeper Name Role Phone Pcp, Unknown Primary Care Provider Unavailabl e Allergies Active Allergy Reactions Criticality Noted Date Comments Ciprofloxacin 02/10/2025 Medications No known medications Encounters Date Type Department Care Team Description 02/10/2025 3:02 PM EDT - 02/11/2025 12:47 AM EDT Emergency [facility] [address] [place] [address] Albania Harrington MD Discharge Disposition: Short Term [...] 2013 INFLUENZA VACCINE (#1) 2024 COVID-19 VACCINE (2024-2 6 season) 2025 SMOKING STATUS SCREENING (On [...] Procedure Name Priority Date/Time Associated Diagnosis Comments SARS-COV-2, INFLUENZA A/B, PCR Routine 02/10/2025 4:41 PM EDT COVID PANDEMIC RESPIRATORY VIRAL ORDER (PRO) STAT 02/10/2025 4:41 PM EDT URINE HCG STAT 02/10/2025 4:41 PM EDT XR CHEST PA AND LATERAL 2 VIEWS Routine 02/10/2025 4:40 PM EDT URINALYSIS WITH REFLEX TO URINE CULTURE STAT 02/10/2025 4:35 PM EDT FREE T4 STAT 02/10/2025 4:14 PM EDT TSH WITH REFLEX STAT 02/10/2025 4:14 PM EDT MAGNESIUM STAT 02/10/2025 4:14 PM EDT LFTS (HEPATIC PANEL) STAT 02/10/2025 4:14 PM EDT BASIC METABOLIC PANEL (BMP) STAT 02/10/2025 4:14 PM EDT CBC AND DIFFERENTIAL STAT 02/10/2025 4:14 PM EDT ECG 12-LEAD STAT 02/10/2025 2:31 PM EDT from Last 3 Months Results * SARS-CoV-2, Influenza A/B, PCR (02/10/2025 4:41 PM EDT) Specimen Source/Descriptio n NASOPHARYNGEAL SWAB [facility] Influenza A PCR Not Detected Not Detected [facility] Influenza B PCR Not Detected Not Detected [facility] SARS-CoV 2 (COVID-19) PCR Not Detected Not Detected [facility] Comment: SARS-CoV-2 not detected Negative results do not preclude SARS-CoV-2 infection and should not be used as the sole basis for patient management decisions. Negative results must be combined with clinical observations, patient history, and epidemiological information. 02/10/2025 4:41 PM EDT 02/10/2025 5:13 PM EDT us Albania Harrington MD LAB GENERAL ORDERABLES Fi nal Result Performing Organization Address City/[facility]/ZIP Co de Phone Number [address] [address] * HCG, urine (02/10/2025 4:41 PM EDT) URINE TEST Negative Negative [facility] Urine (Urine) 02/10/2025 4:4 1 PM EDT 02/10/2025 5:29 PM EDT us Albania Harrington MD LAB URINE ORDERABLES Krystal l Result Performing Organization Address [facility]/ZIP Co de Phone Number [address] [address] * XR CHEST PA AND LATERAL 2 VIEWS (02/10/2025 4:40 PM EDT) Anatomical Region Laterality Modality Chest Computed Radiogr aphy 02/10/2025 5:30 PM EDT Impressions 02/10/2025 5:30 PM EDT No pneumonia or acute cardiopulmonary process. Narrative 02/10/2025 5:30 PM EDT XR CHEST PA AND LATERAL 2 VIEWS Referring clinician's provided indication for this examination in [facility]: Cough; r/o pneumonia COMPARISON: None. FINDINGS: Devices/Tubes/Lines: None. Lungs: No focal consolidation or pulmonary edema. Pleura: No pleural effusion or pneumothorax. Heart/Mediastinum: Normal cardiac silhouette. Normal mediastinal contours. Bones/Soft Tissues: No acute osseous abnormality. Procedure Note Sergei Rowell MD - 02/10/2025 XR CHEST PA AND LATERAL 2 VIEWS Referring clinician's provided indication for this examination in [facility]:Cough; r/o pneumonia COMPARISON: None. FINDINGS: Devices/Tubes/Lines: None. Lungs: No focal consolidation or pulmonary edema. Pleura: No pleural effusion or pneumothorax. Heart/Mediastinum: Normal cardiac silhouette. Normal mediastinalcontours. Bones/Soft Tissues: No acute osseous abnormality. IMPRESSION: No pneumonia or acute cardiopulmonary process. Albania Harrington MD IMG XR CHEST Final Res ult * (ABNORMAL) Urinalysis w/reflex Urine Culture (02/10/2025 4:35 PM EDT) COLOR Yellow Yellow [facility] CLARITY Clear [facility] GLUCOSE Negative Negative [facility] BILI Negative Negative [facility] KETONES 1+(A) Negative [facility] SPECIFIC GRAVITY 1.015 1.005 - 1.030 [facility] BLOOD Negative Negative [facility] PH 8.5(H) 5.0 - 8.0 [facility] Protein-UA Negative Negative [facility] NITRITE Negative Negative [facility] Leukocyte esterase, ur Negative Negative [facility] Urine (Urine) 02/10/2025 4:3 5 PM EDT 02/10/2025 4:46 PM EDT Albania Harrington MD LAB URINE ORDERABLES Krystal l Result [address] [address] * (ABNORMAL) TSH with reflex (02/10/2025 4:14 PM EDT) TSH 0.01(L) 0.27 - 4.20 uIU/mL [facility] Blood 02/10/2025 4:14 PM EDT 02/10/2025 4:44 PM EDT us Albania Harrington MD LAB BLOOD BKR ORDERABLES Final Result Performing Organization Address [facility] Co de Phone Number [address] [address] * LFTs (hepatic panel) (02/10/2025 4:14 PM EDT) ALKALINE PHOSPHATASE 107 39 - 117 U/L [facility] TOTAL BILIRUBIN 0.4 0.0 - 1.2 mg/dL [facility] DIRECT BILIRUBIN 0.1 0.0 - 0.2 mg/dL [facility] Bilirubin (Indirect) NOT CALCULATED 0 - 1.5 mg/dL [facility] AST 17 0 - 37 U/L [facility] ALT 23 0 - 40 U/L [facility] TOTAL PROTEIN 7.3 6.5 - 8.0 g/dL [facility] ALBUMIN 3.9 3.9 - 4.8 g/dL [facility] GLOBULIN 3.4 1 - 4.8 g/dL [facility] A/G Ratio 1.15 1.00 - 4.80 RATIO [facility] Blood 02/10/2025 4:14 PM EDT 02/10/2025 4:44 PM EDT us Albania Harrington MD LAB BLOOD BKR ORDERABLES Final Result Performing Organization Address [facility] Co de Phone Number [address] [address] * (ABNORMAL) CBC and differential (02/10/2025 4:14 PM EDT) WBC 9.78 4.00 - 11.00 K/uL [facility] RBC 4.17 4.00 - 5.20 M/uL [facility] HGB 11.0(L) 12.0 - 16.0 g/dL [facility] HCT 33.8(L) 36.0 - 46.0 % [facility] PLT 307 150 - 450 K/uL [facility] MCV 81.1 80.0 - 100.0 fL [facility] MCH 26.4(L) 27.0 - 31.0 pg [facility] MCHC 32.5 32.0 - 36.0 g/dL [facility] RDW 12.1 11.5 - 14.5 % [facility] MPV 10.2 8.4 - 12.0 fL [facility] NRBC 0.00 0.00 /100 WBCs [facility] ABSOLUTE NRBC 0.00 0.00 K/uL [facility] DIFF METHOD Auto [facility] NEUTS 79.8(H) 48.0 - 76.0 % [facility] LYMPHS 13.3(L) 18.0 - 41.0 % [facility] MONOS 6.3 4.0 - 11.0 % [facility] EOS 0.1 0.0 - 5.0 % [facility] BASOS 0.1 0.0 - 1.5 % [facility] Granulocytes, immature (%) 0.4 0.0 - 0.9 % [facility] ABSOLUTE NEUTS 7.80(H) 1.92 - 7.60 K/uL [facility] ABSOLUTE LYMPHS 1.30 0.72 - 4.10 K/uL [facility] ABSOLUTE MONOS 0.62 0.16 - 1.10 K/uL [facility] ABSOLUTE EOS 0.01 0.00 - 0.50 K/uL [facility] ABSOLUTE BASOS 0.01 0.00 - 0.15 K/uL [facility] Granulocytes, immature 0.04 0.00 - 0.09 K/uL [facility] Blood 02/10/2025 4:14 PM EDT 02/10/2025 4:44 PM EDT us Albania Harrington MD LAB BLOOD BKR ORDERABLES Final Result Performing Organization Address City/[facility]/ZIP Co de Phone Number [address] [address] * (ABNORMAL) Free T4 (02/10/2025 4:14 PM EDT) FREE T4 7.6(H) 0.9 - 1.7 ng/dL [facility] 02/10/2025 4:14 PM EDT 02/10/2025 4:44 PM EDT us Albania Harrington MD LAB BLOOD BKR ORDERABLES Final Result Performing Organization Address [facility]/ZIP Co de Phone Number [address] [address] * Magnesium (02/10/2025 4:14 PM EDT) Pathologist [facility] MAGNESIUM 1.7 1.6 - 2.6 mg/dL [facility] Blood 02/10/2025 4:14 PM EDT 02/10/2025 4:44 PM EDT us Albania Harrington MD LAB BLOOD BKR ORDERABLES Final Result Performing Organization Address City/[facility]/ZIP Co de Phone Number [address] [address] * (ABNORMAL) Basic metabolic panel (02/10/2025 4:14 PM EDT) SODIUM 134 133 - 146 mmol/L [facility] CHLORIDE 100 96 - 108 mmol/L [facility] POTASSIUM 3.8 3.3 - 5.1 mmol/L [facility] CO2 19(L) 21 - 35 mmol/L [facility] BUN 8 6 - 19 mg/dL [facility] CREATININE 0.30(L) 0.5 - 1.5 mg/dL [facility] GLUCOSE 98 70 - 99 mg/dL [facility] CALCIUM 9.1 8.4 - 10.3 mg/dL [facility] EGFR >120 >59 mL/min/1.7 3m2 [facility] Comment:Estimated glomerular filtration rate calculated using the CKD-EPI refit equation. ANION GAP 19 10 - 20 mmol/L [facility] Blood 02/10/2025 4:14 PM EDT 02/10/2025 4:44 PM EDT us Albania Harrington MD LAB BLOOD BKR ORDERABLES Final Result [facility] [address] [place] [address] * ECG 12-LEAD (02/10/2025 2:31 PM EDT) Ventricular Rate EKG/MIN 151 BPM [facility] Atrial Rate 151 BPM [facility] NE Interval 122 ms [facility] QRS Duration 70 ms [facility] QT Interval 254 ms [facility] QTC Interval 402 ms [facility] P [place]ud[place] 59 degrees [facility] R Wave [place] 57 degrees [facility] T Wave [place] 27 degrees [facility] 02/10/2025 2:31 PM EDT 02/11/2025 10:55 AM EDT Narrative [facility] - 02/11/2025 10:55 AM EDT Critical Test Result: High HR Sinus tachycardia Nonspecific T wave abnormality Abnormal ECG No previous ECGs available Confirmed by Sriram Whatley ([id number]) on 02/11/2025 10:55:13 AM us Albania Harrington MD ECG ORDERABLES Final Res ult [facility] from Last 3 Months Insurance [facility] PCP [facility] [id number] Care Teams Housekeeper Relationship Specialty Start Date End Date Pcp, Unknown PCP - General 02/10/25 Additional Source Comments The information contained in this document represents components of the legal health record. It is not the complete legal health record.[facility]
== END 2025-04-23 16:09 | disposition home or self-care (01) ==
LOC: HO.HMCFMS 15:54
PROVIDERS: PCP Family Medicine; Visit Provider Student in an Organized Health Care Education/Training Program
DX: D50.9 Iron deficiency anemia, unspecified (principal); E05.90 Thyrotoxicosis, unspecified without thyrotoxic crisis or storm

== ENCOUNTER → 2025-04-23 15:53 | Outpatient (BNVA) | payer OTHER, SELFPAY | PROVIDERS: PCP Family Medicine; Visit Provider Student in an Organized Health Care Education/Training Program | DX: D50.9 Iron deficiency anemia, unspecified (principal); E05.90 Thyrotoxicosis, unspecified without thyrotoxic crisis or storm; R53.83 Other fatigue | CPT/HCPCS: 99212 ==

== ENCOUNTER 2025-04-28 14:52 | Outpatient (REF) | payer OTHER, SELFPAY ==
--- OUTSIDE RECORDS SUMMARY | 2025-04-28 18:08 | XMS_ITS | Clinical Summary ---
Author Organization [facility] Address [address] [place] [address] Phone Care Team Providers Care Dietary Aide Name Role Phone Pcp, Unknown Primary Care Provider Unavailabl e Allergies Active Allergy Reactions Criticality Noted Date Comments Ciprofloxacin 02/10/2025 Medications No known medications Encounters Date Type Department Care Team Description 02/10/2025 3:02 PM EDT - 02/11/2025 12:47 AM EDT Emergency [facility] [address] [place] [address] Albania Harrington MD Discharge Disposition: Short Term [...] PM EDT) Specimen Source/Descriptio n NASOPHARYNGEAL SWAB [facility] Influenza A PCR Not Detected Not Detected [facility] Influenza B PCR Not Detected Not Detected [facility] SARS-CoV 2 (COVID-19) PCR Not Detected Not Detected [facility] Comment: SARS-CoV-2 not detected Negative results do not preclude SARS-CoV-2 infection and should not be used as the sole basis for patient management decisions. Negative results must be combined with clinical observations, patient history, and epidemiological information. 02/10/2025 4:41 PM EDT 02/10/2025 5:13 PM EDT us Albania Harrington MD LAB GENERAL ORDERABLES Fi nal Result Performing Organization Address City/[facility]/ZIP Co de Phone Number [address] [address] * HCG, urine (02/10/2025 4:41 PM EDT) URINE TEST Negative Negative [facility] Urine (Urine) 02/10/2025 4:4 1 PM EDT 02/10/2025 5:29 PM EDT us Albania Harrington MD LAB URINE ORDERABLES Krystal l Result Performing Organization Address [facility]/ZIP Co de Phone Number [address] [address] * XR CHEST PA AND LATERAL 2 VIEWS (02/10/2025 4:40 PM EDT) Anatomical Region Laterality Modality Chest Computed Radiogr aphy 02/10/2025 5:30 PM EDT Impressions 02/10/2025 5:30 PM EDT No pneumonia or acute cardiopulmonary process. Narrative 02/10/2025 5:30 PM EDT XR CHEST PA AND LATERAL 2 VIEWS Referring clinician's provided indication for this examination in [facility]: Cough; r/o pneumonia COMPARISON: None. FINDINGS: Devices/Tubes/Lines: None. Lungs: No focal consolidation or pulmonary edema. Pleura: No pleural effusion or pneumothorax. Heart/Mediastinum: Normal cardiac silhouette. Normal mediastinal contours. Bones/Soft Tissues: No acute osseous abnormality. Procedure Note Sergei Rowell MD - 02/10/2025 XR CHEST PA AND LATERAL 2 VIEWS Referring clinician's provided indication for this examination in [facility]:Cough; r/o pneumonia COMPARISON: None. FINDINGS: Devices/Tubes/Lines: None. Lungs: No focal consolidation or pulmonary edema. Pleura: No pleural effusion or pneumothorax. Heart/Mediastinum: Normal cardiac silhouette. Normal mediastinalcontours. Bones/Soft Tissues: No acute osseous abnormality. IMPRESSION: No pneumonia or acute cardiopulmonary process. Albania Harrington MD IMG XR CHEST Final Res ult * (ABNORMAL) Urinalysis w/reflex Urine Culture (02/10/2025 4:35 PM EDT) COLOR Yellow Yellow [facility] CLARITY Clear [facility] GLUCOSE Negative Negative [facility] BILI Negative Negative [facility] KETONES 1+(A) Negative [facility] SPECIFIC GRAVITY 1.015 1.005 - 1.030 [facility] BLOOD Negative Negative [facility] PH 8.5(H) 5.0 - 8.0 [facility] Protein-UA Negative Negative [facility] NITRITE Negative Negative [facility] Leukocyte esterase, ur Negative Negative [facility] Urine (Urine) 02/10/2025 4:3 5 PM EDT 02/10/2025 4:46 PM EDT Albania Harrington MD LAB URINE ORDERABLES Krystal l Result [address] [address] * (ABNORMAL) TSH with reflex (02/10/2025 4:14 PM EDT) TSH 0.01(L) 0.27 - 4.20 uIU/mL [facility] Blood 02/10/2025 4:14 PM EDT 02/10/2025 4:44 PM EDT us Albania Harrington MD LAB BLOOD BKR ORDERABLES Final Result Performing Organization Address [facility] Co de Phone Number [address] [address] * LFTs (hepatic panel) (02/10/2025 4:14 PM EDT) ALKALINE PHOSPHATASE 107 39 - 117 U/L [facility] TOTAL BILIRUBIN 0.4 0.0 - 1.2 mg/dL [facility] DIRECT BILIRUBIN 0.1 0.0 - 0.2 mg/dL [facility] Bilirubin (Indirect) NOT CALCULATED 0 - 1.5 mg/dL [facility] AST 17 0 - 37 U/L [facility] ALT 23 0 - 40 U/L [facility] TOTAL PROTEIN 7.3 6.5 - 8.0 g/dL [facility] ALBUMIN 3.9 3.9 - 4.8 g/dL [facility] GLOBULIN 3.4 1 - 4.8 g/dL [facility] A/G Ratio 1.15 1.00 - 4.80 RATIO [facility] Blood 02/10/2025 4:14 PM EDT 02/10/2025 4:44 PM EDT us Albania Harrington MD LAB BLOOD BKR ORDERABLES Final Result Performing Organization Address [facility] Co de Phone Number [address] [address] * (ABNORMAL) CBC and differential (02/10/2025 4:14 PM EDT) WBC 9.78 4.00 - 11.00 K/uL [facility] RBC 4.17 4.00 - 5.20 M/uL [facility] HGB 11.0(L) 12.0 - 16.0 g/dL [facility] HCT 33.8(L) 36.0 - 46.0 % [facility] PLT 307 150 - 450 K/uL [facility] MCV 81.1 80.0 - 100.0 fL [facility] MCH 26.4(L) 27.0 - 31.0 pg [facility] MCHC 32.5 32.0 - 36.0 g/dL [facility] RDW 12.1 11.5 - 14.5 % [facility] MPV 10.2 8.4 - 12.0 fL [facility] NRBC 0.00 0.00 /100 WBCs [facility] ABSOLUTE NRBC 0.00 0.00 K/uL [facility] DIFF METHOD Auto [facility] NEUTS 79.8(H) 48.0 - 76.0 % [facility] LYMPHS 13.3(L) 18.0 - 41.0 % [facility] MONOS 6.3 4.0 - 11.0 % [facility] EOS 0.1 0.0 - 5.0 % [facility] BASOS 0.1 0.0 - 1.5 % [facility] Granulocytes, immature (%) 0.4 0.0 - 0.9 % [facility] ABSOLUTE NEUTS 7.80(H) 1.92 - 7.60 K/uL [facility] ABSOLUTE LYMPHS 1.30 0.72 - 4.10 K/uL [facility] ABSOLUTE MONOS 0.62 0.16 - 1.10 K/uL [facility] ABSOLUTE EOS 0.01 0.00 - 0.50 K/uL [facility] ABSOLUTE BASOS 0.01 0.00 - 0.15 K/uL [facility] Granulocytes, immature 0.04 0.00 - 0.09 K/uL [facility] Blood 02/10/2025 4:14 PM EDT 02/10/2025 4:44 PM EDT us Albania Harrington MD LAB BLOOD BKR ORDERABLES Final Result Performing Organization Address City/[facility]/ZIP Co de Phone Number [address] [address] * (ABNORMAL) Free T4 (02/10/2025 4:14 PM EDT) FREE T4 7.6(H) 0.9 - 1.7 ng/dL [facility] 02/10/2025 4:14 PM EDT 02/10/2025 4:44 PM EDT us Albania Harrington MD LAB BLOOD BKR ORDERABLES Final Result Performing Organization Address [facility]/ZIP Co de Phone Number [address] [address] * Magnesium (02/10/2025 4:14 PM EDT) Pathologist [facility] MAGNESIUM 1.7 1.6 - 2.6 mg/dL [facility] Blood 02/10/2025 4:14 PM EDT 02/10/2025 4:44 PM EDT us Albania Harrington MD LAB BLOOD BKR ORDERABLES Final Result Performing Organization Address City/[facility]/ZIP Co de Phone Number [address] [address] * (ABNORMAL) Basic metabolic panel (02/10/2025 4:14 PM EDT) SODIUM 134 133 - 146 mmol/L [facility] CHLORIDE 100 96 - 108 mmol/L [facility] POTASSIUM 3.8 3.3 - 5.1 mmol/L [facility] CO2 19(L) 21 - 35 mmol/L [facility] BUN 8 6 - 19 mg/dL [facility] CREATININE 0.30(L) 0.5 - 1.5 mg/dL [facility] GLUCOSE 98 70 - 99 mg/dL [facility] CALCIUM 9.1 8.4 - 10.3 mg/dL [facility] EGFR >120 >59 mL/min/1.7 3m2 [facility] Comment:Estimated glomerular filtration rate calculated using the CKD-EPI refit equation. ANION GAP 19 10 - 20 mmol/L [facility] Blood 02/10/2025 4:14 PM EDT 02/10/2025 4:44 PM EDT us Ablania Harrington MD LAB BLOOD BKR ORDERABLES Final Result [facility] [address] [place] [address] * ECG 12-LEAD (02/10/2025 2:31 PM EDT) Ventricular Rate EKG/MIN 151 BPM [facility] Atrial Rate 151 BPM [facility] WA Interval 122 ms [facility] QRS Duration 70 ms [facility] QT Interval 254 ms [facility] QTC Interval 402 ms [facility] P [place] 59 degrees [facility] R Wave [place] 57 degrees [facility] T Wave [place] 27 degrees [facility] 02/10/2025 2:31 PM EDT [...] INC. NON NSPG PCP [facility] [id number] Care Teams Dietary Aide Relationship Specialty Start Date End Date Pcp, Unknown PCP - General 02/10/25 Additional Source Comments The information contained in this document represents components of the legal health record. It is not the complete legal health record.[facility]
[2025-04-28 20:02] LABS: Free T4 (Free Thyroxine) 1.56 ng/dL (0.71-1.85); Thyroid Stimulating Hormone < 0.01 uIU/mL (0.32-4.0)
== END 2025-04-28 14:53 | disposition home or self-care (01) ==
LOC: HO.HKASLDS 14:52
PROVIDERS: PCP Student in an Organized Health Care Education/Training Program; Visit Provider Student in an Organized Health Care Education/Training Program
DX: E05.90 Thyrotoxicosis, unspecified without thyrotoxic crisis or storm (principal)
CPT/HCPCS: 36415; 84439; 84443; 84481; 86376

== ENCOUNTER 2025-05-08 15:04 | Outpatient (AMB) | payer OTHER, SELFPAY ==
[2025-05-08 15:06] VITALS: BP 140/64; PULSE 107; O2SAT 98; BMI 22.0
--- NOTE | 2025-05-08 15:06 | A.OFFPC_ITS ---
Vital Signs 05/08/25 15:06 Height 5 ft 1.89 in Weight 120 lb BMI 22.0 BP 140/64 H Blood Pressure Location Lt brachial Position Sitting Pulse 107 H Pulse Source Pulse Oximeter Temp Source Oral Pulse Oximetry (%) 98 Oxygen Delivery Method Room Air Intake Visit Reasons: 2 wk - lab review Accompanied by: Self / Same As Patient Allergies ciprofloxacin Allergy (Intermediate, Verified 05/08/25 15:06) Muscle Pain Medication List - Last Reconciled 05/09/25 by Randy Hollins MD ascorbic acid (vitamin C) 500 mg PO DAILY ferrous sulfate 325 mg PO DAILY methimazole 20 mg (2 x 10 mg) PO DAILY propranolol 80 mg PO ONCE Tobacco use date assessed: 05/08/25 Dental Screening Dental Screen Date: 05/08/25 Did you have a dental visit in the last 12 months?: No HPI HPI Comments History of Present Illness Details History of Present Illness The patient is a 34 year old female presenting for a follow-up visit for hyperthyroidism and review of lab results. Hyperthyroidism: The patient has a history of subclinical hyperthyroidism and has been on methimazole 10 mg. Lab results from February showed a TSH of <0.01 and a normal free T4 of 1.62. Recent labs in April, two months later, show the TSH remains suppressed at <0.01, the free T4 has decreased to 1.56, and the free T3 is now elevated, confirming overt hyperthyroidism. Medications: - Methimazole 10 mg for hyperthyroidism. Social History: - Reports her sister is in the army and was studying abroad in [facility] [place], and another sister is also in the army. - Patient reports she is Georgian. Family History: - Mother was newly diagnosed with diabet es. Diagnostic Results: - Labs from February: A1c 5.4%. - Thyroid labs (February): TSH <0.01 (nor mal 0.32-4), free T4 1.62 (normal 0.71-1.85). - Thyroid labs (April): TSH <0.01, fr ee T4 1.56, and elevated free T3. Past Medical History - Subclinical hyperthyroidism, now progr essing to overt hyperthyroidism. Health Maintenance - Patient has been checking her blood gl ucose at home due to her mother's recent diabetes diagnosis. - Patient was reassured that her A1c was checked in February and was normal at 5.4%, and there is no reason to worry about diabetes at this time. [facility] Medical History Elevated alkaline phosphatase level Iron deficiency anemia Screening for malignant neoplasm of cervix Dry eyes Hyperthyroidism Patient denies medical problems Family History Mother Colitis Diabetes 1.5, managed as type 2 Father No problems noted. Social History Housing: Apartment Alcohol intake: never Patient Tobacco Use Status: Never used Tobacco e-Cigarette/Vaping Use: Never Used service: No Current occupational status: employed Cognitive needs: No Hearing needs: No Vision needs: No Questionnaire PHQ-9 Over the last 2 weeks, how often have you been bothered by any of the following problems? 1. Little interest or pleasure in doing things: several days 2. Feeling down, depressed, or hopeless: not at all 3. Trouble falling or staying asleep, or sleeping too much: several days 4. Feeling tired or having little energy: several days 5. Poor appetite or overeating: several days 6. Feeling bad about yourself - or that you are a failure or have let yourself or your family down: not at all 7. Trouble concentrating on things, such as reading the newspaper or watching television: several days 8. Moving or speaking so slowly that other people could have noticed. Or the opposite - being so fidgety or restless that you have been moving around a lot more than usual: not at all 9. Thoughts that you would be better off or of hurting yourself in some way: not at all Total score: 5 Depression Screening Interpretation: Negative Depression Screening Done: Yes Source: Developed by Drs. Victor Hugo Richter, Shereen Willoughby, Jorgito Talley and colleagues, with an educational miryam from [employer]. Thrive Questionnaire Date Thrive assessed: 05/08/25 I am a: Patient What is your living situation today?: I have a steady place to live Within the past 12 months, did the food you bought not last and you didn't have the money to get more?: Never true Within the past 12 months, did you worry whether your food would run out before you got money to buy more?: Never true Do you have trouble paying for medicines?: No Do you have trouble getting transportation to medical appointments?: No Do you have trouble paying your heating and electricity bill?: I choose not to answer this question Do you have trouble taking care of your child, family member or friend?: I choose not to answer this question Are you currently unemployed and looking for a job?: No Are you interested in more education?: Yes Currently or been in a relationship where the following occur: No concerns reported THRIVE Score: 0 AUDIT C Alcohol Use Questionnaire (AUDIT-C) 1. How often do you have a drink containing alcohol?: Never Total Score: 0 FRANCISCO-7 AMB Questionnaire FRANCISCO-7 Date FRANCISCO - 7 assessed: 05/08/25 Source: Developed by Drs. Victor Hugo Richter, Shereen Willoughby, Jorgito Talley and colleagues, with an educational miryam from [employer]. Review of Systems Narrative Review of Systems 10-point ROS reviewed and negative except as noted in HPI Physical exam (Primary Care) Vital Signs: Last Vital Signs Pulse 107 H 05/08/25 15:06 BP 140/64 H 05/08/25 15:06 Pulse Ox 98 05/08/25 15:06 Oxygen Delivery Method Room Air 05/08/25 15:06 BMI result Body Mass Index 22.0 Tobacco/Smoking Status: Tobacco use Status Tobacco use date assessed 05/08/25 05/08/25 15:07 Patient Tobacco Use Status Never used Tobacco 05/08/25 15:07 e-Cigarette/Vaping Use Never Used 05/08/25 15:07 PHQ-9: PHQ-9 Score PHQ-9: Total score 5 05/09/25 10:27 Depression Screening Interpretation: Negative Thrive Assessment: Date of Thrive Assessment Date Thrive assessed 05/08/25 05/08/25 15:07 Currently or been in a relationship where the following occur: No concerns reported Narrative Physical Exam General: Well-appearing, in no acute distress. Vital signs: Within normal limits. HEENT: Normocephalic, atraumatic. PERRLA, EOMI. Conjunctiva clear, sclera anicteric. Oropharynx clear, mucous membranes moist. TMs intact bilaterally. Neck: Supple, no lymphadenopathy, no thyromegaly, no JVD or carotid bruits. Cardiovascular: RRR, normal S1/S2, no murmurs, rubs, or gallops. Peripheral pulses 2+ and symmetric. No edema. Respiratory: Lungs clear to auscultation bilaterally, no wheezes, rales, or rhonchi. Normal effort. Abdomen: Soft, non-tender, non-distended. Normoactive bowel sounds. No hepatosplenomegaly, no masses. MSK: Full range of motion, no joint swelling or deformity. Normal gait. Skin: Warm, dry, intact. No rashes, lesions, or pallor. Neuro: Alert and oriented x3. Cranial nerves II-XII intact. Strength 5/5 throughout. Sensation intact. Reflexes 2+ symmetric. Normal coordination and gait. Psych: Appropriate mood and affect. Normal judgment and insight. Coding Level of Care Code Est Pt Level 3 (16734) Add On Problem Visit Only Diagnoses Hyperthyroidism E05.90 Assessment & Plan Assessment & Plan (1) Hyperthyroidism: Code(s): E05.90 - Thyrotoxicosis, unspecified without thyrotoxic crisis or storm Category: Medical Plan Consent Patient was informed and verbally consented to the use of an ambient scribe for clinic note documentation during this visit. Plan 1. Hyperthyroidism - The patient's recent labs show a persistently suppressed TSH (<0.01) and a new elevation in free T3, indicating a need for medication adjustment. - Increase methimazole from 10 mg to 20 mg daily. - Patient has an upcoming appointment with endocrinology on the or . - A thyroid ultrasound is also scheduled for the . - Defer further medication adjustments to the regulatory submissions associate. of note pt has been skipping medication doses due to weight gain she is afraid of gaining weight she also endorses tachycardia Discussion Notes I reviewed the patient's recent lab results from April. I explained that while her TSH remains suppressed and her free T4 is slightly lower, the new finding of an elevated free T3 confirms that she has overt hyperthyroidism and is no longer in a subclinical state. Based on these findings, I recommended increasing her methimazole dose from 10 mg to 20 mg daily. We discussed her upcoming endocrinology appointment and thyroid ultrasound, and I advised her to follow up with the specialist for their final recommendations on management. I also addressed her concerns about her home glucose readings, which she checked due to her mother's recent diabetes diagnosis. I reassured her that her A1c was normal at 5.4% in February, and there is no current reason for concern regarding diabetes. Patient Instructions - Increase your methimazole dose to 20 mg once a day. - Attend your upcoming endocrinology appointment on the or . - Complete your thyroid ultrasound scheduled for the . - You do not need to worry about checking your blood sugar at home; your recent A1c test was normal. Medical Decision Making The patient is a 34-year-old female with a history of subclinical hyperthyroidism who presents for a review of recent lab work. Her initial labs in February showed a suppressed TSH with a normal free T4. Despite treatment with methimazole 10 mg for two months, repeat labs show a persistently suppressed TSH (<0.01), a slightly decreased free T4 (1.56), and a newly ordered, elevated free T3. This laboratory profile confirms a transition from subclinical to overt hyperthyroidism, indicating that the current dose of methimazole is insufficient. Therefore, the medication will be increased to 20 mg daily. The patient has an upcoming appointment with endocrinology and a scheduled thyroid ultrasound, so further management decisions will be deferred to the specialist. I also addressed the patient's concern about diabetes, reassuring her based on a normal A1c of 5.4% in February, and advised against frequent home glucose monitoring. Total Time Statement 20 min Total time spent caring for the patient today includes pre-visit chart review, documentation, review of laboratory and diagnostic imaging results, medication reconciliation, medically necessary evaluation, counseling on diagnoses, care coordination, ordering appropriate tests and medications, review of tests performed by other providers, reporting test results to the patient, and communication with other healthcare providers. Orders: Orders Influenza [id number] Immunization 05/08/25 Z23 - Encounter for immunization Medications: New methimazole 20 mg (2 x 10 mg) PO DAILY 60 tabs 0RF Fluarix (PF) (flu vac ts (6mos up)-PF) 0.5 mL IM ONCE 0.5 mL 0RF NS Z23 - Encounter for immunization Discontinued methimazole Discontinued Reason: Doctor's Order 10 mg PO DAILY 90 tabs 0RF
--- OUTSIDE RECORDS SUMMARY | 2025-05-08 22:36 | XMS_ITS | Clinical Summary ---
Author Organization [facility] Address [address] [place] [address] Phone Care Team Providers Care Configuration Management Consultant Name Role Phone Pcp, Unknown Primary Care Provider Unavailabl e Allergies Active Allergy Reactions Criticality Noted Date Comments Ciprofloxacin 02/10/2025 Medications No known medications Encounters Date Type Department Care Team Description 02/10/2025 3:02 PM EDT - 02/11/2025 12:47 AM EDT Emergency [facility] [address] [place] [address] Albania Harrington MD Discharge Disposition: Short Term [...] PM EDT) Specimen Source/Descriptio n NASOPHARYNGEAL SWAB [facility] Influenza A PCR Not Detected Not Detected [facility] Influenza B PCR Not Detected Not Detected [facility] SARS-CoV 2 (COVID-19) PCR Not Detected Not Detected [facility] Comment: SARS-CoV-2 not detected Negative results do not preclude SARS-CoV-2 infection and should not be used as the sole basis for patient management decisions. Negative results must be combined with clinical observations, patient history, and epidemiological information. 02/10/2025 4:41 PM EDT 02/10/2025 5:13 PM EDT us Albania Harrington MD LAB GENERAL ORDERABLES Fi nal Result Performing Organization Address City/[facility]/ZIP Co de Phone Number [address] [address] * HCG, urine (02/10/2025 4:41 PM EDT) URINE TEST Negative Negative [facility] Urine (Urine) 02/10/2025 4:4 1 PM EDT 02/10/2025 5:29 PM EDT us Albania Harrington MD LAB URINE ORDERABLES Krystal l Result Performing Organization Address [facility]/ZIP Co de Phone Number [address] [address] * XR CHEST PA AND LATERAL 2 VIEWS (02/10/2025 4:40 PM EDT) Anatomical Region Laterality Modality Chest Computed Radiogr aphy 02/10/2025 5:30 PM EDT Impressions 02/10/2025 5:30 PM EDT No pneumonia or acute cardiopulmonary process. Narrative 02/10/2025 5:30 PM EDT XR CHEST PA AND LATERAL 2 VIEWS Referring clinician's provided indication for this examination in [facility]: Cough; r/o pneumonia COMPARISON: None. FINDINGS: Devices/Tubes/Lines: None. Lungs: No focal consolidation or pulmonary edema. Pleura: No pleural effusion or pneumothorax. Heart/Mediastinum: Normal cardiac silhouette. Normal mediastinal contours. Bones/Soft Tissues: No acute osseous abnormality. Procedure Note Sergei Rowell MD - 02/10/2025 XR CHEST PA AND LATERAL 2 VIEWS Referring clinician's provided indication for this examination in [facility]:Cough; r/o pneumonia COMPARISON: None. FINDINGS: Devices/Tubes/Lines: None. Lungs: No focal consolidation or pulmonary edema. Pleura: No pleural effusion or pneumothorax. Heart/Mediastinum: Normal cardiac silhouette. Normal mediastinalcontours. Bones/Soft Tissues: No acute osseous abnormality. IMPRESSION: No pneumonia or acute cardiopulmonary process. Albania Harrington MD IMG XR CHEST Final Res ult * (ABNORMAL) Urinalysis w/reflex Urine Culture (02/10/2025 4:35 PM EDT) COLOR Yellow Yellow [facility] CLARITY Clear [facility] GLUCOSE Negative Negative [facility] BILI Negative Negative [facility] KETONES 1+(A) Negative [facility] SPECIFIC GRAVITY 1.015 1.005 - 1.030 [facility] BLOOD Negative Negative [facility] PH 8.5(H) 5.0 - 8.0 [facility] Protein-UA Negative Negative [facility] NITRITE Negative Negative [facility] Leukocyte esterase, ur Negative Negative [facility] Urine (Urine) 02/10/2025 4:3 5 PM EDT 02/10/2025 4:46 PM EDT Albania Harrington MD LAB URINE ORDERABLES Krystal l Result [address] [address] * (ABNORMAL) TSH with reflex (02/10/2025 4:14 PM EDT) TSH 0.01(L) 0.27 - 4.20 uIU/mL [facility] Blood 02/10/2025 4:14 PM EDT 02/10/2025 4:44 PM EDT us Albania Harrington MD LAB BLOOD BKR ORDERABLES Final Result Performing Organization Address [facility] Co de Phone Number [address] [address] * LFTs (hepatic panel) (02/10/2025 4:14 PM EDT) ALKALINE PHOSPHATASE 107 39 - 117 U/L [facility] TOTAL BILIRUBIN 0.4 0.0 - 1.2 mg/dL [facility] DIRECT BILIRUBIN 0.1 0.0 - 0.2 mg/dL [facility] Bilirubin (Indirect) NOT CALCULATED 0 - 1.5 mg/dL [facility] AST 17 0 - 37 U/L [facility] ALT 23 0 - 40 U/L [facility] TOTAL PROTEIN 7.3 6.5 - 8.0 g/dL [facility] ALBUMIN 3.9 3.9 - 4.8 g/dL [facility] GLOBULIN 3.4 1 - 4.8 g/dL [facility] A/G Ratio 1.15 1.00 - 4.80 RATIO [facility] Blood 02/10/2025 4:14 PM EDT 02/10/2025 4:44 PM EDT us Albania Harrington MD LAB BLOOD BKR ORDERABLES Final Result Performing Organization Address [facility] Co de Phone Number [address] [address] * (ABNORMAL) CBC and differential (02/10/2025 4:14 PM EDT) WBC 9.78 4.00 - 11.00 K/uL [facility] RBC 4.17 4.00 - 5.20 M/uL [facility] HGB 11.0(L) 12.0 - 16.0 g/dL [facility] HCT 33.8(L) 36.0 - 46.0 % [facility] PLT 307 150 - 450 K/uL [facility] MCV 81.1 80.0 - 100.0 fL [facility] MCH 26.4(L) 27.0 - 31.0 pg [facility] MCHC 32.5 32.0 - 36.0 g/dL [facility] RDW 12.1 11.5 - 14.5 % [facility] MPV 10.2 8.4 - 12.0 fL [facility] NRBC 0.00 0.00 /100 WBCs [facility] ABSOLUTE NRBC 0.00 0.00 K/uL [facility] DIFF METHOD Auto [facility] NEUTS 79.8(H) 48.0 - 76.0 % [facility] LYMPHS 13.3(L) 18.0 - 41.0 % [facility] MONOS 6.3 4.0 - 11.0 % [facility] EOS 0.1 0.0 - 5.0 % [facility] BASOS 0.1 0.0 - 1.5 % [facility] Granulocytes, immature (%) 0.4 0.0 - 0.9 % [facility] ABSOLUTE NEUTS 7.80(H) 1.92 - 7.60 K/uL [facility] ABSOLUTE LYMPHS 1.30 0.72 - 4.10 K/uL [facility] ABSOLUTE MONOS 0.62 0.16 - 1.10 K/uL [facility] ABSOLUTE EOS 0.01 0.00 - 0.50 K/uL [facility] ABSOLUTE BASOS 0.01 0.00 - 0.15 K/uL [facility] Granulocytes, immature 0.04 0.00 - 0.09 K/uL [facility] Blood 02/10/2025 4:14 PM EDT 02/10/2025 4:44 PM EDT us Albania Harrington MD LAB BLOOD BKR ORDERABLES Final Result Performing Organization Address City/[facility]/ZIP Co de Phone Number [address] [address] * (ABNORMAL) Free T4 (02/10/2025 4:14 PM EDT) FREE T4 7.6(H) 0.9 - 1.7 ng/dL [facility] 02/10/2025 4:14 PM EDT 02/10/2025 4:44 PM EDT us Albania Harrington MD LAB BLOOD BKR ORDERABLES Final Result Performing Organization Address [facility]/ZIP Co de Phone Number [address] [address] * Magnesium (02/10/2025 4:14 PM EDT) Pathologist [facility] MAGNESIUM 1.7 1.6 - 2.6 mg/dL [facility] Blood 02/10/2025 4:14 PM EDT 02/10/2025 4:44 PM EDT us Albania Harrington MD LAB BLOOD BKR ORDERABLES Final Result Performing Organization Address City/[facility]/ZIP Co de Phone Number [address] [address] * (ABNORMAL) Basic metabolic panel (02/10/2025 4:14 PM EDT) SODIUM 134 133 - 146 mmol/L [facility] CHLORIDE 100 96 - 108 mmol/L [facility] POTASSIUM 3.8 3.3 - 5.1 mmol/L [facility] CO2 19(L) 21 - 35 mmol/L [facility] BUN 8 6 - 19 mg/dL [facility] CREATININE 0.30(L) 0.5 - 1.5 mg/dL [facility] GLUCOSE 98 70 - 99 mg/dL [facility] CALCIUM 9.1 8.4 - 10.3 mg/dL [facility] EGFR >120 >59 mL/min/1.7 3m2 [facility] Comment:Estimated glomerular filtration rate calculated using the CKD-EPI refit equation. ANION GAP 19 10 - 20 mmol/L [facility] Blood 02/10/2025 4:14 PM EDT 02/10/2025 4:44 PM EDT us Albania Harrington MD LAB BLOOD BKR ORDERABLES Final Result [facility] [address] [place] [address] * ECG 12-LEAD (02/10/2025 2:31 PM EDT) Ventricular Rate EKG/MIN 151 BPM [facility] Atrial Rate 151 BPM [facility] OK Interval 122 ms [facility] QRS Duration 70 ms [facility] QT Interval 254 ms [facility] QTC Interval 402 ms [facility] P [place] 59 degrees [facility] R Wave [place] 57 degrees [facility] T Wave [place] 27 degrees [facility] 02/10/2025 2:31 PM EDT 02/11/2025 10:55 AM EDT Narrative [facility] - 02/11/2025 10:55 AM EDT Critical Test Result: High HR Sinus tachycardia Nonspecific T wave abnormality Abnormal ECG No previous ECGs available Confirmed by Sriram Whatley ([id number]) on 02/11/2025 10:55:13 AM us Albania Harrington MD ECG ORDERABLES Final Res ult [facility] from Last 3 Months Insurance [facility] NON NSPG PCP [facility] [employer] [place] [id number] Care Teams Configuration Management Consultant Relationship Specialty Start Date End Date Pcp, Unknown PCP - General 02/10/25 Additional Source Comments The information contained in this document represents components of the legal health record. It is not the complete legal health record.[facility]
== END 2025-05-08 15:36 | disposition home or self-care (01) ==
PROVIDERS: PCP Student in an Organized Health Care Education/Training Program; Visit Provider Student in an Organized Health Care Education/Training Program
DX: E05.90 Thyrotoxicosis, unspecified without thyrotoxic crisis or storm (principal)

== ENCOUNTER → 2025-05-08 15:04 | Outpatient (BNVA) | payer OTHER, SELFPAY | PROVIDERS: PCP Family Medicine; Visit Provider Student in an Organized Health Care Education/Training Program | DX: E05.90 Thyrotoxicosis, unspecified without thyrotoxic crisis or storm (principal) | CPT/HCPCS: 99212 ==

== ENCOUNTER 2025-05-13 15:31 | Outpatient (REF) | payer OTHER, SELFPAY ==
--- NOTE | ~2025-05-13 | US_ITS ---
EXAMINATION: US THYROID CLINICAL INFORMATION: Thyrotoxicosis. COMPARISON: None available. TECHNIQUE: Linear transducer grayscale and color Doppler examination with attention to the region of the thyroid. FINDINGS: SIZE: Measurements of the thyroid lobes and nodules are given in sagittal, anteroposterior and transverse dimensions respectively. Right Thyroid Lobe: 5.6 x 1.8 x 2.3 cm, volume 12.2 mL. Parenchyma: The gland echotexture is heterogeneous. Thyroid vascularity is increased. Left Thyroid Lobe: 5.0 x 2.2 x 2.2 cm, volume 12.6 mL. Parenchyma: The gland echotexture is heterogeneous. Thyroid vascularity is increased. Isthmus: 0.2 cm in maximum AP dimension. Estimated total number of nodules greater than or equal to 1 cm: 0. Financial Systems Administrator nodules are described as follows: NODES: No lymphadenopathy is seen in the tissue surrounding the thyroid gland. US/US thyroid IMPRESSION: ACR TI RADS category 0. ACR TI-RADS RECOMMENDATION REFERENCE: Ultrasound-guided fine-needle aspiration, followup ultrasound, no further follow up. * TR1 (0 point) and TR2 (2 points): No FNA or follow up. * TR3 (3 points): FNA if more than or equal to 2.5 cm in maximum dimension, followup ultrasound in 1, 3 and 5 years if 1.5 to 2.4 cm in maximum dimension. * TR4 (4-6 points): FNA if more than or equal to 1.5 cm in maximum dimension, followup ultrasound in 1, 2, 3 and 5 years if 1 to 1.4 cm in maximum dimension. * TR5 (more than or equal to 7 points): FNA if more than or equal to 1 cm in maximum dimension, followup ultrasound every year for 5 years if 0.5 to 0.9 cm in maximum dimension. * TR3, TR4 or TR5 nodules that are below the size threshold for followup receive no follow up. Electronically signed by: Chriss Us MD 05/14/2025 06:58 AM EST
--- OUTSIDE RECORDS SUMMARY | 2025-05-13 19:42 | XMS_ITS | Clinical Summary ---
Author Organization [facility] Address [address] [place] [address] Phone Care Team Providers Care Grade School Teacher Name Role Phone Pcp, Unknown Primary Care Provider Unavailabl e Allergies Active Allergy Reactions Criticality Noted Date Comments Ciprofloxacin 02/10/2025 Medications No known medications Encounters Date Type Department Care Team Description 02/10/2025 3:02 PM EDT - 02/11/2025 12:47 AM EDT Emergency [facility] [address] [place] [address] Albania Harrington MD Discharge Disposition: Short Term [...] this topic Medical Devices Not on [place] [address] [place] [address] NSP [facility]CP [facility] Care Teams Grade School Teacher Relationship Specialty Start Date End Date Pcp, Unknown PCP - General 02/10/25 Additional Source Comments The information contained in this document represents components of the legal health record. It is not the complete legal health record.[facility]
== END 2025-05-13 15:32 | disposition home or self-care (01) ==
LOC: HO.US 15:31
PROVIDERS: PCP Student in an Organized Health Care Education/Training Program; Visit Provider Student in an Organized Health Care Education/Training Program
DX: E05.90 Thyrotoxicosis, unspecified without thyrotoxic crisis or storm (principal)
CPT/HCPCS: 76536

== ENCOUNTER → 2025-05-13 15:32 | Outpatient (BNV) | payer OTHER, SELFPAY | PROVIDERS: PCP Student in an Organized Health Care Education/Training Program; Visit Provider Radiology Diagnostic Radiology | DX: E05.90 Thyrotoxicosis, unspecified without thyrotoxic crisis or storm (principal) | CPT/HCPCS: 76536 ==

== ENCOUNTER 2025-05-14 13:21 | Outpatient (AMB) | payer OTHER, SELFPAY ==
--- NOTE | 2025-05-14 13:29 | A.OFFVIS_ITS ---
Vital Signs 05/14/25 13:32 Height 5 ft 1.89 in Weight 120 lb 2.431 oz BMI 22.1 BP 106/64 Blood Pressure Location Rt brachial Position Sitting Pulse 97 Pulse Source Pulse Oximeter Pulse Oximetry (%) 98 Oxygen Delivery Method Room Air Intake Visit Reasons: Thyrotoxicosis, unspecified without thyrotoxic cri Intake Note: New patient internally referred by PCP for Thyrotoxicosis. Top Case Assembler Required: No Accompanied by: Self / Same As Patient Allergies ciprofloxacin Allergy (Intermediate, Verified 05/14/25 13:32) Muscle Pain HPI Comments Details: History of Present Illness The patient is a 34-year-old female who presents for an endocrinology consultation regarding her thyroid. She was recently diagnosed with Graves' disease after being admitted to the ICU at [facility] for a suspected thyroid storm in January. During her hospitalization, she was started on methimazole 40 mg and propranolol 240 mg. Following discharge, the patient was unable to secure a follow-up appointment with endocrinology at [facility] due to insurance issues. Believing the dose was too high and lacking medical guidance, she independently reduced her methimazole dose from 40 mg to 10 mg and admits to inconsistent use. About two weeks ago, her primary care provider increased the methimazole dose to 20 mg due to elevated thyroid levels. Clinically, the patient reports intermittent palpitations and tremors, which have improved since starting the 20 mg dose of methimazole. She previously experienced significant sweating, shortness of breath, hair loss (which has since stopped), and very dry, itchy skin (which has improved). She reports some weight loss initially, but then gained it all back rapidly while on medication. She experiences sore and dry eyes but denies any bulging, pain behind the eyes, or vision changes. She was seen by an sleep manager, Dr. Blankenship, who did not find evidence of thyroid eye disease. Diagnostic workup includes a thyroid ultrasound, which revealed a heterogeneous gland with increased blood flow, and lab tests that were positive for thyroid peroxidase antibodies. A thyroid uptake and scan was not performed. She has a family history of Graves' disease in her sister. The patient denies any history of radiation to the head or neck and denies taking biotin or kelp supplements. The patient expresses a desire for future but is not currently trying to conceive. Medication History - Methimazole: Started at 40 mg daily following hospitalization. - The patient self-adjusted the dose to 10 mg daily and used it inconsistently due to inability to see a specialist and perceived side effects. - Propranolol: Started at 240 mg daily. Medications - Methimazole 20 mg daily for Graves' disease - Propranolol 80 mg daily for hyperthyroidism symptoms Exercise The patient's ability to exercise has been limited by symptoms of hyperthyroidism, such as elevated heart rate. Diet History The patient denies use of kelp or other iodine-containing supplements. The patient denies taking biotin supplements. Results - Labs: Recent labs showed an undetectable TSH, a normal T4, and an elevated T3 of 7.3 (normal < 4). - Thyroid peroxidase antibodies are positive. - WBC count has dropped to 4.7 from a baseline of 9.6 in 2020. - Mild anemia has been present since 2020. - Alkaline phosphatase is slightly elevated, likely secondary to hyperthyroidism. - Imaging: Thyroid ultrasound showed a heterogeneous gland with increased vascular flow on Doppler, suggestive of Graves' disease. [facility] Medical History Elevated alkaline phosphatase level Iron deficiency anemia Screening for malignant neoplasm of cervix Dry eyes Hyperthyroidism Patient denies medical problems Surgical History (Updated 05/14/25 @ 13:33 by Wendy Hernandez [facility]) No pertinent past surgical history Family History Mother Colitis Diabetes 1.5, managed as type 2 Father No problems noted. Social History Housing: Apartment Alcohol intake: never Patient Tobacco Use Status: Never used Tobacco e-Cigarette/Vaping Use: Never Used service: No Current occupational status: employed Cognitive needs: No Hearing needs: No Vision needs: No Review of Systems Narrative Review of Systems - Constitutional: Reports history of increased sweating and initial weight loss followed by rapid weight gain. - Eyes: Reports her eyeballs are sometimes sore and very dry. Denies blurred vision, diplopia, or eye bulging. - Cardiovascular: Reports occasional palpitations. - Respiratory: Reports a history of shortness of breath, which has improved. - Gastrointestinal: Reports bowel movements have normalized; she previously was not able to have bowel movements while on medication. - Integumentary: Reports history of significant hair loss that has now stopped. Reports very dry and itchy skin, which has improved with medication. - Neurological: Reports occasional tremors, which are less frequent than before. Physical Exam Exam Exam: Physical Exam - Vitals: Heart rate 107 bpm. - Neck: Thyroid gland is not palpably enlarged. - Auscultation over the gland was performed. - Cardiovascular: Heart was auscultated. - Neurological: No tremor noted on examination with arms outstretched. Absence of Cushingoid features. Absence of acromegalic features. Neck exam reveals nl size thyroid about 15 gms. No thyroid nodules palpable. Heart S1 S2, Reg R/R. No M/R G. Skin exam reveals absence of vitiligo or acanthosis nigricans. Visual exam of foot performed. No ulcerations or open lesions. No inter digit maceration or fissuring. No onychomycosis, no callouses. Sensation intact to monofilament exam. Vibratory sensation is normal with 128 Hz tuning fork. Const Other: Thyroid gland is normal size weighs about 15 . There are no thyroid nodules palpated. There are no bruits breasts. Ptosis or exophthalmos present Assessment & Plan Assessment & Plan (1) Hyperthyroidism: Code(s): E05.90 - Thyrotoxicosis, unspecified without thyrotoxic crisis or storm Category: Medical Plan: This is a 34-year-old white female with a history of hyperthyroidism most likely secondary to Graves disease considering the ultrasonic appearance and positive antibodies. She is currently being treated with methimazole 20 mg dose recently increased. Plan is to recheck TSH, free T4, free T3 and TR AB antibodies in 4 weeks along with CBC once patient is consistent with take methimazole . Went over options of treatment with the patient including continued use of methimazole vs radioactive iodine vs surgery. Went over side effects of methimazole including but not limited to joint pains, liver toxicity and agranulocytosis Plan Assessment and Plan 1. Graves' disease with hyperthyroidism The patient is a 34-year-old female with newly diagnosed Graves' disease (or possibly Hashitoxicosis) who presented initially with a thyroid storm requiring ICU admission. Her condition is currently not fully controlled, as evidenced by her persistent symptoms and elevated T3, likely due to a period of medication non-adherence. The recent dose increase of methimazole to 20 mg by her PCP was an appropriate step. The plan is to control her hyperthyroidism, monitor for medication side effects, and provide extensive education. Plan: Continue methimazole 20 mg daily. Emphasized the critical importance of consistent, daily use without self-adjusting the dose. Continue propranolol 80 mg daily to manage adrenergic symptoms like palpitations and tremor. This is a temporary measure and will be weaned off once the thyroid levels normalize. Laboratory monitoring: In 4 weeks, will check TSH, free T4, and free T3 to assess response to the current methimazole dose. A CBC will be checked to monitor the white blood cell count, which has shown a decrease. TRAB antibodies will also be checked to confirm the diagnosis of Graves' and to help prognosticate the likelihood of remission. Patient education: Provided extensive education on the nature of Graves' disease, treatment options (methimazole, radioactive iodine, surgery), and prognosis. Discussed the serious, albeit rare, side effects of methimazole, including liver toxicity and agranulocytosis, and advised her to seek immediate medical care for any signs of infection, such as fever or sore throat. Also discussed dietary considerations, such as avoiding iodine supplements and biotin before lab draws. counseling: Advised to use effective contraception and avoid at this time due to the risks of uncontrolled hyperthyroidism. Discussed that if she plans in the future, management would likely involve switching to PTU or considering a definitive treatment like thyroidectomy prior to conception for a safer . Records: Will obtain inpatient records from her admission at [facility] to better understand the severity of her initial presentation. Follow-up: The patient will return for a follow-up visit in 6 weeks to review lab results and clinical status. The patient had an opportunity to ask questions regarding treatment plan. The patient expressed understanding and agreement with the above treatment plan. Patient was informed and verbally consented to the use of an ambient scribe for clinic note documentation during this visit. Discussion Notes I had an extensive discussion with the patient regarding her recent diagnosis of autoimmune thyroid disease, most likely Graves' disease. I explained the pathophysiology of her condition using a thyroid model, a process that had not been done for her previously. We reviewed the three primary treatment options: antithyroid medications (methimazole), radioactive iodine ablation, and thyroidectomy, including the fact that the latter two result in permanent hypothyroidism requiring lifelong hormone replacement. I emphasized the serious potential side effects of methimazole, including the rare but life-threatening risk of agranulocytosis (bone marrow suppression), which can present as a severe infection. I instructed her to seek immediate medical evaluation and a blood count for any new fever or sore throat. I also stressed that the risk of not treating her hyperthyroidism, including progressing to another thyroid storm, is significantly greater than the risk of the medication. We discussed her plans for future . I strongly advised her to use effective contraception and avoid at this time while her thyroid is uncontrolled. I explained that management would need to change before and during , possibly involving a switch to PTU or undergoing thyroidectomy for the safest outcome. I reassured her that this diagnosis should not prevent her from having a baby in the future, provided it is well-managed. I addressed her inconsistency with her medication and reinforced the necessity of taking methimazole and propranolol consistently every day to allow for effective treatment and accurate lab monitoring. The plan is to continue her current regimen, obtain lab work in four weeks, and follow up in six weeks. I provided her with several reliable websites for patient education. Patient Instructions - Take your methimazole 20 mg and propranolol 80 mg every day as prescribed. Do not skip doses or change the dose on your own. Being consistent is very important for your health. - It is very important to go to the emergency room or call us immediately if you develop a fever, a sore throat, or any other signs of infection. This medication can sometimes affect your immune system. - In about 4 weeks, please go to the lab for blood tests. We will check your thyroid levels, a complete blood count (CBC), and special thyroid antibodies. - Please make a follow-up appointment to see me in about 6 weeks, which should be about two weeks after you get your blood tests done. - It is very important that you do not get right now. Please use reliable control. - Avoid taking any supplements that contain iodine or kelp. A standard, daily multivitamin is okay to take. - Avoid taking any biotin supplements for at least a few days before you have your blood drawn, as it can affect the test results. - Please sign a release form at the front end java developer so we can get your medical rec ords from your recent hospital stay at [facility]. Orders: Orders Thyroid Stimulating Hormone 2 Weeks E05.90 - Thyrotoxicosis, unspecified without thyrotoxic crisis or storm Complete Blood Count Auto Diff 2 Weeks E0 - Thyrotoxicosis, unspecified without thyrotoxic crisis or storm Free T4 (Free Thyroxine) 2 Weeks E0 - Thyrotoxicosis, unspecified without thyrotoxic crisis or storm Triiodothyronine T3 Free 2 Weeks E0 - Thyrotoxicosis, unspecified without thyrotoxic crisis or storm Thyrotropin Receptor Antibody 2 Weeks E0 - Thyrotoxicosis, unspecified without thyrotoxic crisis or storm Coding Level of Care Code New Pt Level 4 (31461) Diagnoses Hyperthyroidism E0
[2025-05-14 13:32] VITALS: BP 106/64; PULSE 97; O2SAT 98; BMI 22.1
--- OUTSIDE RECORDS SUMMARY | 2025-05-14 17:34 | XMS_ITS | Clinical Summary ---
Author Organization [facility] Address [address] [place] [id number] Phone Care Team Providers Care Livestock Yard Attendant Name Role Phone Pcp, Unknown Primary Care Provider Unavailabl e Allergies Active Allergy Reactions Criticality Noted Date Comments Ciprofloxacin 02/10/2025 Medications No known medications Social History Tobacco Use Types Packs/Day Years Used Date Smoking Tobacco: Never Smokeless Tobacco: Never Tobacco Cessation:Counseling Given: Not Answered Alcohol Use Standard Drinks/Week Comments Not Currently 0 (1 standard drink = 0.6 oz pur e alcohol) Education Answer Date Recorded Are you interested in more education? Not on astre e 02/10/2025 Are you concerned about learning? [...] topic Medical Devices Not on file Insurance [facility] PCP [facility] Care Teams Livestock Yard Attendant Relationship Specialty Start Date End Date Pcp, Unknown PCP - General 02/10/25 Additional Source Comments The information contained in this document represents components of the legal health record. It is not the complete legal health record.[facility]
== END 2025-05-14 14:28 | disposition home or self-care (01) ==
LOC: HO.ENCR 13:22
PROVIDERS: PCP Student in an Organized Health Care Education/Training Program; Visit Provider Internal Medicine Endocrinology, Diabetes & Metabolism
DX: E05.90 Thyrotoxicosis, unspecified without thyrotoxic crisis or storm (principal)
CPT/HCPCS: 99204

== ENCOUNTER → 2025-05-14 13:21 | Outpatient (BNVA) | payer OTHER, SELFPAY | PROVIDERS: PCP Student in an Organized Health Care Education/Training Program; Visit Provider Internal Medicine Endocrinology, Diabetes & Metabolism | DX: E05.90 Thyrotoxicosis, unspecified without thyrotoxic crisis or storm (principal); Z79.899 Other long term (current) drug therapy | CPT/HCPCS: 99202 ==